=== PATIENT | female | born 1945 | race Hispanic/Latino ===

== ENCOUNTER 2017-09-07 14:06 | Outpatient (CLI) | payer MEDICARE, MEDICAID | END 2017-09-07 14:07 | disposition home or self-care (01) | LOC: BICMAMMO 14:06 | PROVIDERS: ATTEND Nurse Practitioner Family | DX: Z12.31 Encounter for screening mammogram for malignant neoplasm of breast (principal) | CPT/HCPCS: 77063; 77067 ==

== ENCOUNTER 2018-02-10 15:08 | Emergency (ER) | payer MEDICARE, MEDICAID, OTHER ==
[2018-02-10] MEDS ORDERED: Adacel (T-DAP) 0.5 ML VIAL ONE (15:51)
--- NOTE | 2018-02-10 16:08 | RAD ---
CHEST TWO VIEWS: 02/10/18 HISTORY: Chest pain. COMPARISON: 01/02/16. FINDINGS: The cardiac silhouette and pulmonary vasculature are unremarkable. Mediastinum is midline. No conflue nt air space consolidation, pneumothorax, or pleural fluid. Degenerative changes of the thoracic spin e. IMPRESSION: No active cardiopulmonary abnormalities are demonstrated. POS: [facility]
--- NOTE | 2018-02-10 16:15 | RAD ---
RIGHT FOREARM TWO VIEWS: 02/10/18 HISTORY: Forearm pain. There are arthritic changes of the wrist and elbow. The bones are demineralized. Vascular calcificati ons are present. No acute injury. IMPRESSION: No acute findings. POS: [facility]
== END 2018-02-10 17:18 | disposition home or self-care (01) ==
LOC: ERS 15:08
DX: S50.11XA Contusion of right forearm, initial encounter (principal); S20.212A Contusion of left front wall of thorax, initial encounter; E11.9 Type 2 diabetes mellitus without complications; M19.90 Unspecified osteoarthritis, unspecified site; I10 Essential (primary) hypertension; E03.9 Hypothyroidism, unspecified; V49.9XXA Car occupant (driver) (passenger) injured in unspecified traffic accident, initial encounter
CPT/HCPCS: 71046; 90471; 90715

== ENCOUNTER 2018-06-03 23:08 | Emergency (ER) | payer MEDICARE, MEDICAID ==
--- NOTE | 2018-06-04 07:57 | RAD ---
RADIOGRAPH RIGHT KNEE TWO VIEWS: Date: 06-04-18 Time: 1201 a.m. History: 72-year-old female with acute traumatic knee pain due to fall. FINDINGS: This is a 2 view study. In general, at least a 3 view or 4 view radiograph of joints is recommended for better sensitivity for the detection of nondisplaced or mildly displaced fractures. There is a mo derate to large suprapatellar density which could be hemarthrosis or joint effusion. There are large osteophytes, and severe joint space narrowing, involving the patellofemoral, medial, and lateral comp artments. The osteophytes are very large at the superior aspect of the patellofemoral compartment. Th ere is edema in Hoffa's fat pad. There is also soft tissue edema posterior to the knee. No displaced fracture is identified. Chronic mild right lateral subluxation of the tibia relative to the distal fe mur due to the severe DJD. IMPRESSION: 1. Severe tricompartmental osteoarthrosis. 2. Suprapatellar joint effusion versus hemarthrosis. 3. Edema in Hoffa's fat pad. 4. No grossly displaced fracture identified. POS: [facility]
--- NOTE | 2018-06-04 09:04 | RAD ---
RIGHT ELBOW TWO VIEWS: History: Fall. Right elbow pain. FINDINGS/IMPRESSION: Degenerative changes are present. No definite fracture or dislocation is seen. If symptoms do not imp rove, follow up exam should be obtained in 5-7 days. Code T POS: [place]
--- NOTE | 2018-06-04 10:02 | CT ---
PRELIMINARY REPORT/[facility]/EMERGENTY AFTER-HOURS PROCEDURE CT Head Without Intravenous Contrast EXAM DATE/TIME: Exam ordered 06/04/2018 12:10 AM CLINICAL HISTORY: 72 years old, female; Injury or trauma; Fall; Initial encounter; Blunt trauma (contusions or hematoma s); Consciousness not specified TECHNIQUE: Axial computed tomography images of the head/brain without intravenous contrast. COMPARISON: No relevant prior studies available. FINDINGS: Brain: Mild generalized volume loss of the brain. No brain edema. No intracranial hemorrhage. No sign ificant white matter disease. Ventricles: Unremarkable. No ventriculomegaly. Bones/joints: Unremarkable. No acute fracture. Soft tissues: Unremarkable. Sinuses: Unremarkable as visualized. No acute sinusitis. Mastoid air cells: Unremarkable as visualized. No mastoid effusion. IMPRESSION: No acute brain findings. Thank you for allowing us to participate in the care of your patient. Dictated and Authenticated by: Jordan Brantley MD 06/04/2018 12:26 AM Central Time ([place] & [place]) CT BRAIN WITHOUT CONTRAST FINAL REPORT: I agree with the preliminary report given by Dr. Brantley of [facility]. POS: [facility]
== END 2018-06-04 01:16 | disposition home or self-care (01) ==
LOC: SCSER 23:08
DX: S05.11XA Contusion of eyeball and orbital tissues, right eye, initial encounter (principal); S50.01XA Contusion of right elbow, initial encounter; S80.01XA Contusion of right knee, initial encounter; M19.90 Unspecified osteoarthritis, unspecified site; E11.9 Type 2 diabetes mellitus without complications; E78.5 Hyperlipidemia, unspecified; I10 Essential (primary) hypertension; W01.0XXA Fall on same level from slipping, tripping and stumbling without subsequent striking against object, initial encounter
CPT/HCPCS: 70450

== ENCOUNTER 2018-11-08 12:20 | Outpatient (CLI) | payer MEDICARE, MEDICAID ==
--- NOTE | 2018-11-08 14:58 | MMO ---
FILMS COMPARED: The present examination has been compared to prior imaging studies performed at [facility] on 09/07/2017, and at [facility] on 07/03/2013, 07/13/2014, 03/21/2015, 07/23/2015 and 07/28/2016. MAMMOGRAM FINDINGS: There are scattered fibroglandular densities. There are benign appearing calcifications seen in both breasts. There are no suspicious masses, calcifications or areas of architectural distortion. IMPRESSION: CALCIFICATIONS IN BOTH BREASTS ARE BENIGN. A ROUTINE FOLLOW-UP MAMMOGRAM IN 1 YEAR IS RECOMMENDED. ACR BI-RADS Category 2 - Benign finding
== END 2018-11-08 12:21 | disposition home or self-care (01) ==
LOC: BICMAMMO 12:20
PROVIDERS: ATTEND Nurse Practitioner Family
DX: Z12.31 Encounter for screening mammogram for malignant neoplasm of breast (principal); R92.1 Mammographic calcification found on diagnostic imaging of breast
CPT/HCPCS: 77063; 77067

== ENCOUNTER 2019-03-13 22:23 | Emergency (ER) | payer MEDICARE, MEDICAID ==
[2019-03-13] MEDS ORDERED: Ketorolac Tromethamine 30 MG/ML VIAL ONE (23:49)
== END 2019-03-14 00:31 | disposition home or self-care (01) ==
LOC: ERS 22:23
DX: M54.41 Lumbago with sciatica, right side (principal); E11.9 Type 2 diabetes mellitus without complications; E03.9 Hypothyroidism, unspecified; E78.5 Hyperlipidemia, unspecified; I10 Essential (primary) hypertension
CPT/HCPCS: 96372; 99283; J1885

== ENCOUNTER 2019-11-21 09:15 | Outpatient (CLI) | payer MEDICARE, MEDICAID ==
--- NOTE | 2019-11-21 11:15 | MMO ---
Bilateral MAMMO Bilat Screen [facility]. CLINICAL HISTORY: Patient is 74 years old and is seen for screening. The patient has the following family history of breast cancer: niece. The patient has no personal history of cancer. The patient has a history of left Stereotatic Biopsy - benign. VIEWS: The views performed were: bilateral craniocaudal with tomosynthesis and bilateral mediolateral oblique with tomosynthesis. FILMS COMPARED: The present examination has been compared to prior imaging studies performed at [facility] on 09/07/2017 and 11/08/2018, and at [facility] on 07/28/2016. This study has been interpreted with the assistance of computer-aided detection. MAMMOGRAM FINDINGS: There are scattered fibroglandular densities. There are stable benign appearing calcifications seen in both breasts. There are no suspicious masses, suspicious calcifications, or new areas of architectural distortion. IMPRESSION: THERE IS NO MAMMOGRAPHIC EVIDENCE OF MALIGNANCY. A ROUTINE FOLLOW-UP MAMMOGRAM IN 1 YEAR IS RECOMMENDED. THE RESULTS OF THIS EXAM WERE SENT TO THE PATIENT. ACR BI-RADS Category 2 - Benign finding MAMMOGRAPHY NOTE: 1. A negative mammogram report should not delay a biopsy if a dominant of clinically suspicious mass is present. 2. Approximately 10% to 15% of breast cancers are not detected by mammography. 3. Adenosis and dense breasts may obscure an underlying neoplasm. Reported by: BHARATH VAUGHAN MD Electonically Signed: [id number]
== END 2019-11-21 09:16 | disposition home or self-care (01) ==
LOC: BICMAMMO 09:15
PROVIDERS: ATTEND Nurse Practitioner Family
DX: Z12.31 Encounter for screening mammogram for malignant neoplasm of breast (principal); Z91.89 Other specified personal risk factors, not elsewhere classified; Z80.3 Family history of malignant neoplasm of breast
CPT/HCPCS: 77063; 77067

== ENCOUNTER 2020-01-17 12:34 | Outpatient (CLI) | payer MEDICARE, MEDICAID ==
--- NOTE | 2020-01-17 14:56 | ULT ---
RIGHT LOWER EXTREMITY VENOUS ULTRASOUND: 01/17/20 HISTORY: Right lower extremity pain. TECHNIQUE: Multiplanar león scale and color Doppler images were obtained in a right lower extremity venous ultra sound. Spectral analysis of the Doppler waveforms were performed. FINDINGS: The right common femoral vein, profunda femoral vein, superficial femoral vein, and popliteal vein ar e normal in appearance without visible thrombus. These vessels demonstrate normal compression, flow a nd augmentation. The posterior tibial vein and greater saphenous vein are also patent. IMPRESSION: No evidence of DVT. POS: [facility]
== END 2020-01-17 12:35 | disposition home or self-care (01) ==
LOC: BICULT 12:34
PROVIDERS: ATTEND Nurse Practitioner Family
DX: M79.604 Pain in right leg (principal)

== ENCOUNTER 2020-04-10 15:10 | Outpatient (CLI) | payer MEDICARE, MEDICAID ==
--- NOTE | 2020-04-10 15:35 | RAD ---
RIGHT KNEE 4 VIEWS: HISTORY: Knee pain. FINDINGS: Severe degenerative changes noted. Loss of both medial and lateral joint spaces with severe medial j oint space loss. Prominent spurring from all joint compartments. Chondrocalcinosis. Severe hypertr ophic degenerative changes at the patellofemoral joint. Small joint effusion. IMPRESSION: Severe hypertrophic degenerative changes of right knee. POS: [facility]
== END 2020-04-10 15:11 | disposition home or self-care (01) ==
LOC: RAD-FRANK 15:10
PROVIDERS: ATTEND Nurse Practitioner Family
DX: M25.561 Pain in right knee (principal); M17.11 Unilateral primary osteoarthritis, right knee

== ENCOUNTER 2020-06-06 09:41 | Outpatient (CLI) | payer MEDICARE, MEDICAID, OTHER ==
[2020-06-06 14:17] LABS: Anion Gap 13 mmol/L (10-20); BUN (Urea Nitrogen) 14 mg/dL (9.8-20.1); Calc. Creatinine Clearance 0 mL/min (70-130); Calcium 9.4 mg/dL (7.8-10.44); Carbon Dioxide 27 mmol/L (23-31); Chloride 107 mmol/L (98-107); Estimated GFR-MDRD 78; Glucose 79 mg/dL (83-110); Potassium 3.9 mmol/L (3.5-5.1); Sodium 143 mmol/L (136-145)
[2020-06-06 14:29] LABS: #Eosinphils 0.2 thou/uL (0.0-0.7); #Lymphocytes 0.7 thou/uL (1.20-3.40); #Monocytes 0.3 thou/uL (0.11-0.59); #Neutrophils 2.1 thou/uL (1.40-6.50); %Basophils 0.4 % (0.0-1.0); %Eosinophils 4.7 % (0.0-10.0); %Lymphocytes 22.9 % (21.0-51.0); %Monocytes 8.8 % (0.0-10.0); %Neutrophils 63.2 % (42.0-75.0); Hemoglobin 12.3 g/dL (12.0-16.0); Mean Corpuscular HGB CONC 32.7 g/dL (32.0-36.0); Mean Corpuscular Hemoglobin 31.3 pg (27.0-31.0); Mean Corpuscular Volume 95.9 fL (78.0-98.0); Mean Platelet Volume 10.9 fL (7.4-10.4); Platelet Count 146 thou/uL (130-400); RBC Distribution Width 13.4 % (11.5-14.5); Red Blood Cell (RBC) Count 3.93 mill/uL (4.20-5.40); White Blood Cell (WBC) Count 3.3 thou/uL (4.8-10.8)
[2020-06-06 14:35] LABS: INR-International Normal Ratio 0.9; Prothrombin Time 12.5 sec (12.0-14.7)
[2020-06-06 15:08] LABS: Bacteria/HPF None Seen HPF (None Seen); Bilirubin Negative (Negative); Blood, Urine Negative (Negative); Calcium Oxalate Crystals 2+ HPF (None Seen); Clarity Clear (Clear); Glucose, Urine (Dipstick) Normal (Negative); Ketone, Urine Negative (Negative); Leukocyte Negative Leu/uL (Negative); Mucous/LPF Rare LPF (<2+); Nitrite Negative (Negative); Protein, Urine (Dipstick) 70 mg/dL (Neg-Trace); RBC/HPF 0-3 HPF (0-3); Specific Gravity, Urine 1.025 (1.002-1.036); Squamous Epithelial 0-3 HPF (0-3); Urobilinogen Normal mg/dL (Less than 2); WBC/HPF 0-3 HPF (0-3)
[2020-06-07 11:20] LABS: SARS-CoV-2 MS2 Positive; SARS-CoV-2 N Gene Negative; SARS-CoV-2 S Gene Negative; SARS-CoV-2 by NAA Not Detected (NotDetected); SARS-CoV-2 orf1ab Negative
== END 2020-06-06 09:42 | disposition home or self-care (01) ==
LOC: LABBT 09:41
PROVIDERS: ATTEND Orthopaedic Surgery
DX: Z01.818 Encounter for other preprocedural examination (principal); Z20.828 Contact with and (suspected) exposure to other viral communicable diseases; M17.11 Unilateral primary osteoarthritis, right knee
CPT/HCPCS: 80048; 81001; 85025; 85610; 93005; U0003; 87635; 93010

== ENCOUNTER 2020-06-10 05:31 | Inpatient (IN) | payer MEDICARE, MEDICAID, OTHER ==
[2020-06-07 10:21] VITALS: BMI 27.2
[2020-06-10] MEDS ORDERED: Vancomycin 1 GM/200 ML BAG ONE (05:59)
[2020-06-10] MEDS ORDERED: Tranexamic Acid 1,000 MG/10 ML VIAL ONE (05:59)
[2020-06-10] MEDS ORDERED: Sodium Chloride 0.9% 100 ML ONE (05:59)
[2020-06-10] MEDS ORDERED: Midazolam HCl 2 mg/2 ml Vial ONE (06:29)
[2020-06-10] MEDS ORDERED: Fentanyl 100 MCG/2 ML VIAL ONE ×3 (06:30→07:54)
[2020-06-10] MEDS ORDERED: Lidocaine 1% (PF) 30 ML VIAL ONE (06:30)
[2020-06-10] MEDS ORDERED: Ondansetron PF 4 MG/2 ML Vial IVP PRN (07:13)
[2020-06-10] MEDS ORDERED: Fentanyl 100 MCG/2 ML VIAL SLOW IVP PRN (07:13)
[2020-06-10] MEDS ORDERED: Zolpidem Tartrate 5 MG TAB PO PRN ×2 (07:13→07:15)
[2020-06-10] MEDS ORDERED: traMADol HCl 50 MG TAB PO PRN ×2 (07:13→07:15)
[2020-06-10] MEDS ORDERED: diphenhydrAMINE 25 MG CAP PO PRN (07:13)
[2020-06-10] MEDS ORDERED: HYDROcodone/Acetaminophen 10/325 mg Tablet PO PRN ×2 (07:13)
[2020-06-10] MEDS ORDERED: Promethazine HCl 25 MG/ML VIAL IM PRN ×3 (07:13→07:46)
[2020-06-10] MEDS ORDERED: Acetaminophen 325 MG TAB PO PRN ×2 (07:13→07:15)
[2020-06-10] MEDS ORDERED: Tranexamic Acid 1,000 MG in Sodium Chloride 0.9% 100 ML IVPB SCH (07:15)
[2020-06-10] MEDS ORDERED: Bupivacaine PF 0.5% 30 ML VIAL ONE (07:32)
[2020-06-10] MEDS ORDERED: Promethazine HCl 25 MG/ML VIAL SLOW IVP PRN (07:46)
[2020-06-10] MEDS ORDERED: Ondansetron HCl/PF 4 MG/2 ML Vial IVP PRN (07:46)
[2020-06-10] MEDS ORDERED: Phenylephrine 10 MG/ML VIAL ONE (08:39)
[2020-06-10] MEDS ORDERED: PHENYLEPHRINE-NS 100 MCG/ML 10 ML SYRINGE ONE ×2 (08:40→10:35)
[2020-06-10] MEDS ORDERED: CALCIUM CARBONATE PO SCH (09:00)
[2020-06-10] MEDS ORDERED: [UNRECOGNIZED DRUG - OTHER] PO SCH (09:00)
[2020-06-10] MEDS ORDERED: Multivit, Therapeutic 1 TAB PO SCH (09:00)
[2020-06-10] MEDS ORDERED: VITAMIN D3 PO SCH (09:00)
[2020-06-10] MEDS ORDERED: VITAMIN D PO SCH (09:00)
[2020-06-10] MEDS ORDERED: Non-Formulary Item 1 EACH (Cholecalciferol (Vitamin D3) [Vitamin D3] 2,000 UNIT Capsule) PO SCH (09:00)
[2020-06-10] MEDS ORDERED: Non-Formulary Item 1 EACH (Cyanocobalamin (Vitamin B-12) [Vitamin B-12] 1,000 MCG Capsule PO SCH (09:00)
[2020-06-10] MEDS ORDERED: Non-Formulary Item 1 EACH (Multivitamin [Multivitamin] 1 EACH Tablet) PO SCH (09:00)
[2020-06-10] MEDS ORDERED: Non-Formulary Item 1 EACH (Metformin Hcl [Metformin Hcl] 1,000 MG Tablet) PO SCH (09:00)
[2020-06-10] MEDS ORDERED: Aspirin 81 mg Enteric Coated Tablet PO SCH (09:00)
[2020-06-10] MEDS ORDERED: Levothyroxine 175 MCG TAB PO SCH (09:00)
[2020-06-10] MEDS ORDERED: Non-Formulary Item 1 EACH (Leflunomide [Arava] 20 MG Tab) PO SCH (09:00)
[2020-06-10] MEDS: Sodium Chloride 0.9% 1,000 ML IV SCH ×3 (10:15→23:13)
[2020-06-10] MEDS: Calcium Carbonate 600 MG + Vit D TAB PO SCH ×2 (10:16→20:03)
[2020-06-10] MEDS: Glimepiride 2 MG TAB PO SCH (10:16)
[2020-06-10] MEDS: metFORMIN 500 MG TAB PO SCH ×2 (10:16→17:23)
[2020-06-10] MEDS: Amlodipine 5 MG TAB PO SCH (10:16)
[2020-06-10] MEDS: Cholecalciferol 1,000 UNITS (25 MCG) TAB PO SCH (10:16)
[2020-06-10] MEDS: Senokot S 8.6-50 MG TAB PO SCH ×2 (10:17→20:03)
[2020-06-10] MEDS: Multivitamin W/ Minerals 1 TAB PO SCH (10:17)
[2020-06-10] MEDS: Cyanocobalamin (Vitamin B-12) 1,000 MCG TAB PO SCH (10:17)
[2020-06-10] MEDS: Polyethylene Glycol 3350 17 GM Packet PO SCH (10:17)
[2020-06-10] MEDS: Ferrous Gluconate 324 MG TAB PO SCH ×2 (10:17→20:04)
[2020-06-10] MEDS ORDERED: PROPOFOL 200 MG/20 ML VIAL ONE (10:35)
[2020-06-10] MEDS ORDERED: Ondansetron PF 4 MG/2 ML Vial ONE (10:35)
[2020-06-10] MEDS ORDERED: Ropivacaine 0.2% HCl/PF (40 MG/20 ML VIAL) ONE (10:35)
[2020-06-10] MEDS ORDERED: Lidocaine 1% PF 5 ML VIAL ONE (10:35)
[2020-06-10] MEDS ORDERED: Bupivacaine HCl 0.5%/Epinephrine 1:200,000/PF 30 ml Vial ONE (10:35)
[2020-06-10] MEDS ORDERED: Ketorolac Tromethamine 30 MG/ML VIAL ONE (10:35)
[2020-06-10] MEDS ORDERED: EPHEDRINE 25 MG/5 ML SYRINGE ONE (10:35)
[2020-06-10] MEDS ORDERED: Metoclopramide HCl 10 MG/2 ML VIAL ONE (10:35)
[2020-06-10] MEDS: CEFAZOLIN 2 GM in Premix Bag 1 BAG IVPB SCH ×2 (13:32→20:03)
[2020-06-10] MEDS: Ketorolac Tromethamine 30 MG/ML VIAL IVP SCH ×2 (13:33→17:20)
[2020-06-10] MEDS: Leflunomide 10 mg Tablet PO SCH (13:39)
--- NOTE | 2020-06-10 15:26 | OP ---
DATE OF PROCEDURE: 06/10/2020 EDITOR [place]: Gus Newell PA-C PREOPERATIVE DIAGNOSIS: Right knee rheumatoid arthritis. POSTOPERATIVE DIAGNOSIS: Right knee rheumatoid arthritis. PROCEDURE: Right total knee replacement using Stupil pinless navigation system. ANESTHESIA: She had general anesthetic. She had a preoperative block. BLOOD LOSS: Minimal. COMPLICATIONS: None. TOURNIQUET TIME: DISPOSITION: She went to the recovery room in stable condition. IMPLANTS: To the right knee include Triathlon total knee system. The femur was a size 3 right-sided posterior stabilized femoral component. The tibial base plate was a size 3 primary tibial base plate. We used a size 3 x 9 mm posterior stabilized X3 tibial bearing and an asymmetric 29 x 9 X3 patella. INDICATIONS: This is a 74-year-old female, who has rheumatoid arthritis and is currently on biologic for this. Unfortunately, she has failed nonoperative treatment. At this time, she wished to have her knee replaced. PROCEDURE IN DETAIL: After all appropriate consent forms were explained and signed, the patient was taken back to the operating room and at this time was given general anesthetic. Once the level of anesthesia was appropriate, a well-padded tourniquet was placed on the right leg, and the leg was then prepped and draped in standard surgical fashion. The limb was exsanguinated and tourniquet taken up to 300 mmHg. Midline incision was made with a 10 blade down through the skin and subcutaneous tissue. Bovie electrocautery was used to coagulate any brisk venous bleeding. A new blade was used to make a medial parapatellar arthrotomy. Small subperiosteal release was performed medially and excess fat pad was removed. The knee was flexed up to gain access to the femur. The femur was navigated and distal femoral resection was made. Epicondylar access was used to align our sizing jig and this was pinned in place. We sized our femur to be a 3. 4:1 cutting block was applied and pinned. Anterior and posterior chamfer cuts were then made. We navigated out our proximal tibia and made our proximal tibial resection. Spreaders were used to remove any posterior osteophytes off the back of the femur as well as remaining meniscal tissue. A long alignment stefani was then used to achieve correct rotation of our tibial baseplate and a size 3 was chosen. This was pinned in place. We trialed the polyethylene and a 3 x 9 mm posterior stabilized X3 tibial bearing polyethylene gave us full extension and good stability throughout range of motion. Two towel clips and a saw were used to cut our patella. Three lug nuts were drilled and asymmetric 29 x 9 X3 patella was trialed which sat nicely in the trochlear groove. We then drilled our femur and punched our tibia. All components were removed. The knee was thoroughly irrigated and dried. Cement was mixed into the cement gun on the back table. Components were then placed. The knee was held out in full extension until the cement had dried. All excess bone cement was removed. Multiple #2 Vicryl stitches as well as a Quill were used to close our extensor mechanism. 0 Quill followed by a running Monoderm was then used to close the skin. Surgicel glue was then used on the skin. Once this had dried, soft tissue dressing was applied to the limb, tourniquet was let down, and the toes pinked up nicely. The patient was then awakened and taken to the recovery room in stable condition. All counts were correct at the end of the case. The patient did receive preoperative IV antibiotics. The patient was injected with Marcaine for postoperative pain relief. As the patient has rheumatoid arthritis, it was decided to do a posterior stabilized femoral implant. Therefore, the extra step of cutting out the bone in the notch was performed once we had done primary trialing of the femur and tibia. There was no complication in doing this. The executive administrative assistant surgeon was present throughout the procedure, including the approach, placement of implants and closure. Assistance surgeon provided help in all portions of the procedure. Job ID: [id number] [facility] F[facility]ILITY[facility]
[2020-06-10] MEDS ORDERED: Vancomycin 1 GM in Premix Bag 1 BAG IVPB SCH (18:00)
[2020-06-10] MEDS: Aspirin 81 mg Enteric Coated Tablet PO SCH (20:03)
[2020-06-10] MEDS: Lisinopril 20 MG TAB PO SCH (20:03)
[2020-06-10] MEDS: HYDROcodone/Acetaminophen 10/325 mg Tablet PO PRN (20:04)
[2020-06-10] MEDS: Atorvastatin Calcium 20 MG TAB PO SCH (20:04)
[2020-06-10] MEDS ORDERED: Simvastatin 40 MG TAB PO SCH (21:00)
[2020-06-11] MEDS: Ketorolac Tromethamine 30 MG/ML VIAL IVP SCH ×5 (00:42→23:06)
[2020-06-11] MEDS: HYDROcodone/Acetaminophen 10/325 mg Tablet PO PRN ×3 (02:31→10:37)
--- NOTE | 2020-06-11 05:11 | CON ---
DATE OF CONSULTATION: Consultation to Dr. David Nichols. PRIMARY CARE PROVIDER: Dr. Girard in [place]. REASON FOR CONSULTATION: Consultation for medical management. HISTORY OF PRESENT ILLNESS: The patient is status post right total knee replacement this morning. She is awake, oriented, no nausea, no vomiting, no fever or chills. No chest pain or shortness of breath. PAST MEDICAL HISTORY: Pertinent for diabetes mellitus type 2, rheumatoid arthritis, hypertension, dyslipidemia. MEDICATIONS: 1. Amlodipine 2.5 mg a day. 2. Aspirin 81 mg a day. 3. Biotin 5 mg a day. 4. Vitamin D3. 5. Vitamin B12. 6. Voltaren 4 g topical q.i.d. p.r.n. 7. Amaryl 2 mg p.o. q.a.m. 8. Plaquenil 300 mg a day. 9. Arava 20 mg a day. 10. Levothyroxine one half of 175 mcg tablet a day. 11. Lisinopril 20 mg a day. 12. Magnesium 200 twice a day. 13. Protonix 40 mg a day. 14. Zocor 40 mg a day. 15. Metformin 500 mg p.o. b.i.d. 16. Tramadol 50 mg p.o. t.i.d. p.r.n. ALLERGIES: TO SULFA, CAUSES HIVES. PAST SURGICAL HISTORY: Thyroidectomy, cholecystectomy, hysterectomy, bilateral arthroscopic knee surgery. FAMILY HISTORY: Sister, mother, granddaughter with diabetes. Mother had congestive heart failure. Has a daughter with rheumatoid arthritis. SOCIAL HISTORY: . Next of kin is Marta Lowe. No tobacco. No alcohol or illicit drugs. Code status is full. REVIEW OF SYSTEMS: GENERAL: No headaches, dizziness, or fainting. EYES: No double vision, blurred vision, or flashing lights. EARS, NOSE, AND THROAT: No ear pain or drainage. No nose bleeding. No trouble swallowing. CARDIAC: No chest pain, shortness of breath, or paroxysmal nocturnal dyspnea. RESPIRATION: No cough, wheezing, or asthma. GASTROINTESTINAL: No nausea, vomiting, diarrhea, constipation, or melena. GENITOURINARY: No hematuria or dysuria. MUSCULOSKELETAL: She had some swelling in her right leg prior to surgery. No swelling on the left. No pain in her muscles. She did have a painful right knee that made walking difficult. NEUROLOGIC: No strokes, seizures, or focal weakness. PSYCHIATRIC: No anxiety or depression. SKIN: No bruising, bleeding, or rash. HEME/LYMPH: No tender or swollen lymph nodes in axilla, inguinal, or cervical area. PHYSICAL EXAMINATION: GENERAL: The patient is alert and cooperative, pleasant lady. VITAL SIGNS: Blood pressure 96/47, respirations 18, pulse 75, temperature 98.4. HEAD, EYES, EARS, NOSE, AND THROAT: Revealed pupils equal, round, and reactive. Extraocular movements are intact. Sclerae are white. Tympanic membranes are clear. Nose clear. Oral mucous membranes are wet. Dental hygiene is good. NECK: Supple without jugular venous distention, adenopathy, or thyromegaly. CHEST: Clear to auscultation and percussion. HEART: Had a regular rate and rhythm. First and second heart sounds are clear. There are no appreciated murmurs or gallops. ABDOMEN: Soft. Bowel sounds are normal. There is no hepatosplenomegaly. No mass. No rebound. No bruits. Bowel sounds are present. EXTREMITIES: 1+ edema in the right leg, none in the left. Right knee bandaged. NEUROLOGIC: Moves all extremities. Cranial nerves 2 through 12 are intact. SKIN: Warm and dry without bruises or rash. HEME/LYMPH: No tender or swollen lymph nodes in axilla, inguinal, or cervical area. PSYCHIATRIC: Alert, oriented, cooperative, pleasant lady. STUDIES: X-ray of right knee, severe degenerative changes with joint space narrowing, erosion, etc, reviewed by me. EKG, regular sinus rhythm with complete right bundle branch block, reviewed by me. LABORATORY DATA: COVID negative. White count 3.3, hemoglobin 12.3, platelet count 146,000. INR 0.9. Basic metabolic profile normal. Blood sugar 79, followup blood sugar 68, followup 110. Urine is clear. ADMITTING DIAGNOSES: 1. Postop right total knee replacement, doing well. 2. Rheumatoid arthritis, on Plaquenil. 3. Diabetes mellitus, type 2. 4. Hypertension. 5. Elevated cholesterol. PLAN: The patient is stable postop. Continue selected home medicines. Thank you for the consult. We will follow with you. Job ID: [id number]
[2020-06-11 05:49] LABS: Hemoglobin 8.6 g/dL (12.0-16.0); Mean Corpuscular HGB CONC 34.1 g/dL (32.0-36.0); Mean Corpuscular Hemoglobin 32.6 pg (27.0-31.0); Mean Corpuscular Volume 95.5 fL (78.0-98.0); Mean Platelet Volume 9.6 fL (7.4-10.4); Platelet Count 113 thou/uL (130-400); RBC Distribution Width 13.7 % (11.5-14.5); Red Blood Cell (RBC) Count 2.64 mill/uL (4.20-5.40); White Blood Cell (WBC) Count 5.1 thou/uL (4.8-10.8)
[2020-06-11] MEDS: Levothyroxine 175 MCG TAB PO SCH (06:12)
[2020-06-11] MEDS: Fentanyl 100 MCG/2 ML VIAL SLOW IVP PRN ×2 (09:13→10:38)
[2020-06-11] MEDS: Multivitamin W/ Minerals 1 TAB PO SCH (09:18)
[2020-06-11] MEDS: Cyanocobalamin (Vitamin B-12) 1,000 MCG TAB PO SCH (09:18)
[2020-06-11] MEDS: Polyethylene Glycol 3350 17 GM Packet PO SCH (09:18)
[2020-06-11] MEDS: Senokot S 8.6-50 MG TAB PO SCH ×2 (09:18→20:08)
[2020-06-11] MEDS: Ferrous Gluconate 324 MG TAB PO SCH ×2 (09:20→20:08)
[2020-06-11] MEDS: metFORMIN 500 MG TAB PO SCH ×2 (09:20→19:10)
[2020-06-11] MEDS: Calcium Carbonate 600 MG + Vit D TAB PO SCH ×2 (09:20→20:08)
[2020-06-11] MEDS: Cholecalciferol 1,000 UNITS (25 MCG) TAB PO SCH (09:21)
[2020-06-11] MEDS: Amlodipine 5 MG TAB PO SCH (09:22)
[2020-06-11] MEDS: Glimepiride 2 MG TAB PO SCH (10:41)
[2020-06-11] MEDS: Leflunomide 10 mg Tablet PO SCH (10:42)
--- NOTE | 2020-06-11 15:18 | PDOC.HOSPP ---
- Subjective Encounter Date: 06/11/20 Encounter Time: 15:16 Subjective: some pain in kneee post rehab - Objective Vital Signs & Weight: Vital Signs (12 hours) Temp Pulse Resp BP BP Pulse Ox 06/11/20 10:45 97.6 F 88 18 119/63 99 06/11/20 09:22 95 06/11/20 08:02 98.5 F 95 16 146/71 H 96 06/11/20 03:43 92 L Weight Admit Weight 149 lb Weight 149 lb I&O: 06/10/20 06/11/20 06/12/20 06:59 06:59 06:59 Intake Total 1550 Output Total 3350 Balance -1800 Result Diagrams: 06/11/20 05:17 Hospitalist ROS - Medication Medications: Active Medications Generic Name Dose Route Start Last Admin Trade Name Freq PRN Reason Stop Dose Admin Hydrocodone Bitart/Acetaminophen 1 tab 06/10/20 07:15 06/11/20 06:13 Hydrocodone/Acetaminophen 10/325 Mg Tablet PO 1 tab Q4H PRN Administration Pain (1-3) Hydrocodone Bitart/Acetaminophen 2 tab 06/10/20 07:15 06/11/20 10:37 Hydrocodone/Acetaminophen 10/325 Mg Tablet PO 2 tab Q4H PRN Administration PAIN (4-6) Amlodipine Besylate 2.5 mg 06/10/20 09:00 06/11/20 09:22 Amlodipine 5 Mg Tab PO 2.5 mg DAILY CORINNE Administration Aspirin 81 mg 06/10/20 21:00 06/10/20 20:03 Aspirin 81 Mg Enteric Coated Tablet PO 81 mg QPM CORINNE Administration Atorvastatin Calcium 20 mg 06/10/20 21:00 06/10/20 20:04 Atorvastatin Calcium 20 Mg Tab PO 20 mg HS CORINNE Administration Calcium/Vitamin D 1 tab 06/10/20 09:00 06/11/20 09:20 Calcium Carbonate 600 Mg + Vit D Tab PO 1 tab BID CORINNE Administration Cholecalciferol 2,000 units 06/10/20 09:00 06/11/20 09:21 Cholecalciferol 1,000 Units (25 Mcg) Tab PO 2,000 units DAILY CORINNE Administration Cyanocobalamin 1,000 mcg 06/10/20 09:00 06/11/20 09:18 Cyanocobalamin (Vitamin B-12) 1,000 Mcg Tab PO 1,000 mcg DAILY CORINNE Administration Fentanyl 50 mcg 06/10/20 07:13 06/11/20 10:38 Fentanyl 100 Mcg/2 Ml Vial SLOW IVP 50 mcg Q1H PRN Administration breakthrough pain Ferrous Gluconate 324 mg 06/10/20 09:00 06/11/20 09:20 Ferrous Gluconate 324 Mg Tab PO 324 mg BID CORINNE Administration Glimepiride 2 mg 06/10/20 08:00 06/11/20 10:41 Glimepiride 2 Mg Tab PO 2 mg QAM-WM CORINNE Administration Sodium Chloride 1,000 mls @ 100 mls/hr 06/10/20 07:15 06/10/20 23:13 Normal Saline 0.9% IV Not Given .Q10H CORINNE Iron/Minerals/Multivitamins 1 tab 06/10/20 09:00 06/11/20 09:18 Multivitamin W/ Minerals 1 Tab PO 1 tab DAILY CORINNE Administration Ketorolac Tromethamine 15 mg 06/10/20 12:00 06/11/20 12:10 Ketorolac Tromethamine 30 Mg/Ml Vial IVP 06/12/20 06:01 15 mg Q6HR CORINNE Administration Leflunomide 20 mg 06/10/20 09:00 06/11/20 10:42 Leflunomide 10 Mg Tablet PO 20 mg DAILY CORINNE Administration Levothyroxine Sodium 87.5 mcg 06/11/20 06:00 06/11/20 06:12 Levothyroxine 175 Mcg Tab PO 87.5 mcg 0600 CORINNE Administration Lisinopril 20 mg 06/10/20 21:00 06/10/20 20:03 Lisinopril 20 Mg Tab PO 20 mg QPM CORINNE Administration Metformin HCl 500 mg 06/11/20 08:00 06/11/20 09:20 Metformin 500 Mg Tab PO 500 mg BID-WM CORINNE Administration Pantoprazole Sodium 40 mg 06/10/20 09:00 06/11/20 09:20 Pantoprazole 40 Mg Tab PO 40 mg QAM CORINNE Administration Polyethylene Glycol 17 gm 06/10/20 09:00 06/11/20 09:18 Polyethylene Glycol 3350 17 Gm Packet PO 17 gm DAILY CORINNE Administration Senna/Docusate Sodium 2 tab 06/10/20 09:00 06/11/20 09:18 Senokot S 8.6-50 Mg Tab PO 2 tab BID CORINNE Administration - Exam General Appearance: awake alert Neck: no JVD Heart: RRR, no murmur Respiratory: CTAB Gastrointestinal: soft, non-tender, normal bowel sounds Extremities: no edema Hosp A/P (1) DM type 2 (diabetes mellitus, type 2) Status: Acute Qualifiers: Diabetes mellitus dedicated intermodal truck driver insulin use: without dedicated intermodal truck driver use Diabetes mellitus complication status: without complication Qualified Code(s): E11.9 - Type 2 diabetes mellitus without complications (2) Rheumatoid arthritis Code(s): M06.9 - RHEUMATOID ARTHRITIS, UNSPECIFIED Status: Chronic Qualifiers: Rheumatoid factor presence: with rheumatoid factor Laterality: unspecified laterality (3) HTN (hypertension) Code(s): I10 - ESSENTIAL (PRIMARY) HYPERTENSION Status: Chronic Qualifiers: Hypertension type: essential hypertension Qualified Code(s): I10 - Essential (primary) hypertension (4) Dyslipidemia Code(s): E78.5 - HYPERLIPIDEMIA, UNSPECIFIED Status: Chronic - Plan doing well post-op cont current meds for HTN, DM2 will cont to follow
[2020-06-11] MEDS: Sodium Chloride 0.9% 1,000 ML IV SCH (16:01)
[2020-06-11] MEDS: Ondansetron PF 4 MG/2 ML Vial IVP PRN (17:20)
[2020-06-11] MEDS: Ropivacaine HCl/PF 250 ML in Premix Bag 1 BAG NERVE BLCK SCH (19:09)
[2020-06-11] MEDS: Lisinopril 20 MG TAB PO SCH (20:08)
[2020-06-11] MEDS: Atorvastatin Calcium 20 MG TAB PO SCH (20:08)
[2020-06-11] MEDS: Aspirin 81 mg Enteric Coated Tablet PO SCH (20:08)
[2020-06-12] MEDS: Sodium Chloride 0.9% 1,000 ML IV SCH ×3 (00:27→20:47)
[2020-06-12] MEDS: HYDROcodone/Acetaminophen 10/325 mg Tablet PO PRN ×3 (02:33→18:05)
[2020-06-12 05:18] LABS: Mean Corpuscular HGB CONC 35.8 g/dL (32.0-36.0); Mean Corpuscular Hemoglobin 34.1 pg (27.0-31.0); Mean Corpuscular Volume 95.4 fL (78.0-98.0); Platelet Count 110 thou/uL (130-400); RBC Distribution Width 14.1 % (11.5-14.5); Red Blood Cell (RBC) Count 2.35 mill/uL (4.20-5.40); White Blood Cell (WBC) Count 4.8 thou/uL (4.8-10.8)
[2020-06-12] MEDS: Levothyroxine 175 MCG TAB PO SCH (05:51)
[2020-06-12] MEDS: Ketorolac Tromethamine 30 MG/ML VIAL IVP SCH (05:51)
[2020-06-12] MEDS: Leflunomide 10 mg Tablet PO SCH (08:31)
[2020-06-12] MEDS: Calcium Carbonate 600 MG + Vit D TAB PO SCH ×2 (08:31→20:48)
[2020-06-12] MEDS: metFORMIN 500 MG TAB PO SCH ×2 (08:31→16:08)
[2020-06-12] MEDS: Cholecalciferol 1,000 UNITS (25 MCG) TAB PO SCH (08:31)
[2020-06-12] MEDS: Polyethylene Glycol 3350 17 GM Packet PO SCH (08:31)
[2020-06-12] MEDS: Senokot S 8.6-50 MG TAB PO SCH ×2 (08:31→20:48)
[2020-06-12] MEDS: Glimepiride 2 MG TAB PO SCH (08:31)
[2020-06-12] MEDS: Multivitamin W/ Minerals 1 TAB PO SCH (08:31)
[2020-06-12] MEDS: Cyanocobalamin (Vitamin B-12) 1,000 MCG TAB PO SCH (08:32)
[2020-06-12] MEDS: Ferrous Gluconate 324 MG TAB PO SCH ×2 (08:32→20:48)
[2020-06-12] MEDS: Amlodipine 5 MG TAB PO SCH (08:34)
--- NOTE | 2020-06-12 13:48 | PDOC.HOSPP ---
- Subjective Encounter Date: 06/12/20 Encounter Time: 13:48 Subjective: doing better, pain with PT decreasing. no fever , chills - Objective Vital Signs & Weight: Vital Signs (12 hours) Temp Pulse Resp BP BP BP Pulse Ox 06/12/20 11:53 98.2 F 96 14 160/76 H 98 06/12/20 08:34 98 107/68 06/12/20 07:55 98.6 F 80 14 103/62 94 L 06/12/20 04:38 81 95/58 L 06/12/20 03:25 98.6 F 89 16 96 Weight Admit Weight 149 lb Weight 149 lb I&O: 06/11/20 06/12/20 06/13/20 06:59 06:59 06:59 Intake Total 1550 1250 Output Total 3350 Balance -1800 1250 Result Diagrams: 06/12/20 04:49 Hospitalist ROS - Medication Medications: Active Medications Generic Name Dose Route Start Last Admin Trade Name Freq PRN Reason Stop Dose Admin Hydrocodone Bitart/Acetaminophen 1 tab 06/10/20 07:15 06/12/20 13:22 Hydrocodone/Acetaminophen 10/325 Mg Tablet PO 1 tab Q4H PRN Administration Pain (1-3) Hydrocodone Bitart/Acetaminophen 2 tab 06/10/20 07:15 06/12/20 02:33 Hydrocodone/Acetaminophen 10/325 Mg Tablet PO 2 tab Q4H PRN Administration PAIN (4-6) Amlodipine Besylate 2.5 mg 06/10/20 09:00 06/12/20 08:34 Amlodipine 5 Mg Tab PO Not Given DAILY [facility] Aspirin 81 mg 06/10/20 21:00 06/11/20 20:08 Aspirin 81 Mg Enteric Coated Tablet PO 81 mg QPM [facility] Administration Atorvastatin Calcium 20 mg 06/10/20 21:00 06/11/20 20:08 Atorvastatin Calcium 20 Mg Tab PO 20 mg HS [facility] Administration Calcium/Vitamin D 1 tab 06/10/20 09:00 06/12/20 08:31 Calcium Carbonate 600 Mg + Vit D Tab PO 1 tab BID [facility] Administration Cholecalciferol 2,000 units 06/10/20 09:00 06/12/20 08:31 Cholecalciferol 1,000 Units (25 Mcg) Tab PO 2,000 units DAILY [facility] Administration Cyanocobalamin 1,000 mcg 06/10/20 09:00 06/12/20 08:32 Cyanocobalamin (Vitamin B-12) 1,000 Mcg Tab PO 1,000 mcg DAILY [facility] Administration Fentanyl 50 mcg 06/10/20 07:13 06/11/20 10:38 Fentanyl 100 Mcg/2 Ml Vial SLOW IVP 50 mcg Q1H PRN Administration breakthrough pain Ferrous Gluconate 324 mg 06/10/20 09:00 06/12/20 08:32 Ferrous Gluconate 324 Mg Tab PO 324 mg BID [facility] Administration Glimepiride 2 mg 06/10/20 08:00 06/12/20 08:31 Glimepiride 2 Mg Tab PO 2 mg QAM-WM [facility] Administration Ropivacaine 250 ml/ Device 250 mls @ 10 mls/hr 06/10/20 07:15 06/11/20 19:09 NERVE BLCK 06/13/20 07:14 250 mls INF [facility] Administration Sodium Chloride 1,000 mls @ 100 mls/hr 06/10/20 07:15 06/12/20 08:38 Normal Saline 0.9% IV Not Given .Q10H [facility] Iron/Minerals/Multivitamins 1 tab 06/10/20 09:00 06/12/20 08:31 Multivitamin W/ Minerals 1 Tab PO 1 tab DAILY [facility] Administration Leflunomide 20 mg 06/10/20 09:00 06/12/20 08:31 Leflunomide 10 Mg Tablet PO 20 mg DAILY [facility] Administration Levothyroxine Sodium 87.5 mcg 06/11/20 06:00 06/12/20 05:51 Levothyroxine 175 Mcg Tab PO 87.5 mcg 0600 [facility] Administration Lisinopril 20 mg 06/10/20 21:00 06/11/20 20:08 Lisinopril 20 Mg Tab PO 20 mg QPM [facility] Administration Metformin HCl 500 mg 06/11/20 08:00 06/12/20 08:31 Metformin 500 Mg Tab PO 500 mg BID-WM [facility] Administration Ondansetron HCl 4 mg 06/10/20 07:15 06/11/20 17:20 Ondansetron Pf 4 Mg/2 Ml Vial IVP 4 mg Q6H PRN Administration Nausea/Vomiting Pantoprazole Sodium 40 mg 06/10/20 09:00 06/12/20 08:31 Pantoprazole 40 Mg Tab PO 40 mg QAM [facility] Administration Polyethylene Glycol 17 gm 06/10/20 09:00 06/12/20 08:31 Polyethylene Glycol 3350 17 Gm Packet PO 17 gm DAILY [facility] Administration Senna/Docusate Sodium 2 tab 06/10/20 09:00 06/12/20 08:31 Senokot S 8.6-50 Mg Tab PO 2 tab BID [facility] Administration Sodium Chloride 10 ml 06/10/20 07:13 06/11/20 17:33 Flush - Normal Saline 10 Ml Syringe IVF 10 ml PRN PRN Administration Saline Flush - Exam General Appearance: awake alert Neck: no JVD Heart: RRR Respiratory: CTAB Gastrointestinal: soft, normal bowel sounds Extremities: 1+ LE edema Hosp A/P (1) DM type 2 (diabetes mellitus, type 2) Status: Acute Qualifiers: Diabetes mellitus detention insulin use: without exterminator use Diabetes mellitus complication status: without complication Qualified Code(s): E11.9 - Type 2 diabetes mellitus without complications (2) Rheumatoid arthritis Code(s): M06.9 - RHEUMATOID ARTHRITIS, UNSPECIFIED Status: Chronic Qualifiers: Rheumatoid factor presence: with rheumatoid factor Laterality: unspecified laterality (3) HTN (hypertension) Code(s): I10 - ESSENTIAL (PRIMARY) HYPERTENSION Status: Chronic Qualifiers: Hypertension type: essential hypertension Qualified Code(s): I10 - Essential (primary) hypertension (4) Dyslipidemia Code(s): E78.5 - HYPERLIPIDEMIA, UNSPECIFIED Status: Chronic - Plan doing well post-op cont current meds for HTN, DM2 will cont to follow
[2020-06-12] MEDS: traMADol HCl 50 MG TAB PO PRN (16:08)
[2020-06-12] MEDS: Ropivacaine HCl/PF 250 ML in Premix Bag 1 BAG NERVE BLCK SCH (16:11)
--- NOTE | 2020-06-12 17:05 | PRG ---
DATE OF SERVICE: 06/12/2020 SUBJECTIVE: Hoda is a 74-year-old female, postop day #2 from a right total knee arthroplasty. Pain is relatively well controlled, but she has a little bit of nausea and abdominal discomfort. She is able to ambulate 300 to 400 feet without any problem, but her nausea has been slowing her down in terms of going home. OBJECTIVE: VITAL SIGNS: Temperature 98.6, pulse 80, respiratory rate 14 and nonlabored, O2 saturation is 94% on room air, blood pressure is 103/62. GENERAL: She is alert and oriented to person, place, time, and situation. Responsive and appropriate with examiner and conversive. EXTREMITIES: Incision clean. No erythema. No strike through. She is neurovascularly intact in the right lower extremity. LABORATORY DATA: Hemoglobin and hematocrit are 8.0 and 22.4. IMPRESSION: 1. This is a 74-year-old female, postop day #2, right total knee arthroplasty, pain is well controlled. 2. Nausea, I suspect medication. 3. Asymptomatic anemia. PLAN: We will hold discharge for another day and plan for home discharge tomorrow. Continue to follow hemoglobin and hematocrit and observe abdomen. Job ID: [id number]
[2020-06-12] MEDS: Atorvastatin Calcium 20 MG TAB PO SCH (20:48)
[2020-06-12] MEDS: Aspirin 81 mg Enteric Coated Tablet PO SCH (20:48)
[2020-06-12] MEDS: Lisinopril 20 MG TAB PO SCH (20:48)
[2020-06-13] MEDS: Sodium Chloride 0.9% 1,000 ML IV SCH ×2 (06:11→15:14)
[2020-06-13] MEDS: Levothyroxine 175 MCG TAB PO SCH (06:12)
[2020-06-13 06:39] LABS: Hemoglobin 7.4 g/dL (12.0-16.0); Mean Corpuscular HGB CONC 34.7 g/dL (32.0-36.0); Mean Corpuscular Hemoglobin 33.8 pg (27.0-31.0); Mean Corpuscular Volume 97.7 fL (78.0-98.0); Mean Platelet Volume 9.7 fL (7.4-10.4); RBC Distribution Width 13.7 % (11.5-14.5); Red Blood Cell (RBC) Count 2.18 mill/uL (4.20-5.40); White Blood Cell (WBC) Count 4.7 thou/uL (4.8-10.8)
[2020-06-13 08:02] LABS: Platelet Count 119 thou/uL (130-400)
[2020-06-13] MEDS: HYDROcodone/Acetaminophen 10/325 mg Tablet PO PRN ×4 (09:24→22:30)
[2020-06-13] MEDS: Calcium Carbonate 600 MG + Vit D TAB PO SCH ×2 (09:27→20:20)
[2020-06-13] MEDS: Cyanocobalamin (Vitamin B-12) 1,000 MCG TAB PO SCH (09:27)
[2020-06-13] MEDS: Ferrous Gluconate 324 MG TAB PO SCH ×2 (09:27→20:20)
[2020-06-13] MEDS: Amlodipine 5 MG TAB PO SCH (09:29)
[2020-06-13] MEDS: Multivitamin W/ Minerals 1 TAB PO SCH (09:29)
[2020-06-13] MEDS: Glimepiride 2 MG TAB PO SCH (09:30)
[2020-06-13] MEDS: Cholecalciferol 1,000 UNITS (25 MCG) TAB PO SCH (09:30)
[2020-06-13] MEDS: Leflunomide 10 mg Tablet PO SCH (09:30)
[2020-06-13] MEDS: metFORMIN 500 MG TAB PO SCH ×2 (09:30→17:59)
[2020-06-13] MEDS: Senokot S 8.6-50 MG TAB PO SCH ×2 (09:31→20:21)
[2020-06-13] MEDS: Polyethylene Glycol 3350 17 GM Packet PO SCH (09:31)
--- NOTE | 2020-06-13 13:40 | PRG ---
DATE OF SERVICE: 06/13/2020 SUBJECTIVE: Hoda is a 74-year-old female, postop day 3 from a right total knee arthroplasty. She has been doing relatively well. From an ambulatory stand point, she has been able to ambulate 300 to 400 feet, but tires quickly and her anemia is probably having an effect on that. Pain control is an issue. She has been taking [place], but still has breakthrough pain and this is also slowing her down. She is uncertain about her disposition at home and her ability to take care of herself. Therefore, I have discussed with her options to include a skilled placement. OBJECTIVE: VITAL SIGNS: Temperature 98.6, pulse 78, respiratory rate 14, blood pressure is 119/74. GENERAL: She is alert and oriented to person, place, time, and situation. Responsive and appropriate with examiner. Incision is clean. She is neurovascularly intact. No strikethrough. LABORATORY DATA: Hemoglobin and hematocrit are 7.4 and 21.3. IMPRESSION: 1. Diabetes, type 2. 2. Rheumatoid arthritis. 3. Hypertension. 4. Hyperlipidemia. 5. Postoperative day 3, right total knee arthroplasty with a mildly symptomatic anemia in a very frail female. PLAN: We will go ahead and place a post-acute order for skilled placement screening and consider a transfer to facility tomorrow. Job ID: [id number]
--- NOTE | 2020-06-13 16:33 | PDOC.HOSPP ---
- Subjective Encounter Date: 06/13/20 Encounter Time: 16:31 Subjective: still has some discomfort - Objective Vital Signs & Weight: Vital Signs (12 hours) Temp Pulse Resp BP BP Pulse Ox 06/13/20 15:25 98.3 F 91 14 115/70 97 06/13/20 11:33 98.6 F 78 14 119/74 95 06/13/20 09:29 90 06/13/20 07:54 97 06/13/20 07:37 98.5 F 90 16 131/75 97 06/13/20 06:26 145/74 H 06/13/20 06:25 98.2 F 64 18 148/83 H 96 Weight Admit Weight 149 lb Weight 149 lb I&O: 06/12/20 06/13/20 06/14/20 06:59 06:59 06:59 Intake Total 1250 1200 Balance 1250 1200 Result Diagrams: 06/13/20 04:36 Hospitalist ROS - Medication Medications: Active Medications Generic Name Dose Route Start Last Admin Trade Name Freq PRN Reason Stop Dose Admin Hydrocodone Bitart/Acetaminophen 1 tab 06/10/20 07:15 06/12/20 13:22 Hydrocodone/Acetaminophen 10/325 Mg Tablet PO 1 tab Q4H PRN Administration Pain (1-3) Hydrocodone Bitart/Acetaminophen 2 tab 06/10/20 07:15 06/13/20 13:53 Hydrocodone/Acetaminophen 10/325 Mg Tablet PO 2 tab Q4H PRN Administration PAIN (4-6) Amlodipine Besylate 2.5 mg 06/10/20 09:00 06/13/20 09:29 Amlodipine 5 Mg Tab PO 2.5 mg DAILY [facility] Administration Aspirin 81 mg 06/10/20 21:00 06/12/20 20:48 Aspirin 81 Mg Enteric Coated Tablet PO 81 mg QPM [facility] Administration Atorvastatin Calcium 20 mg 06/10/20 21:00 06/12/20 20:48 Atorvastatin Calcium 20 Mg Tab PO 20 mg HS [facility] Administration Calcium/Vitamin D 1 tab 06/10/20 09:00 06/13/20 09:27 Calcium Carbonate 600 Mg + Vit D Tab PO 1 tab BID [facility] Administration Cholecalciferol 2,000 units 06/10/20 09:00 06/13/20 09:30 Cholecalciferol 1,000 Units (25 Mcg) Tab PO 2,000 units DAILY [facility] Administration Cyanocobalamin 1,000 mcg 06/10/20 09:00 06/13/20 09:27 Cyanocobalamin (Vitamin B-12) 1,000 Mcg Tab PO 1,000 mcg DAILY [facility] Administration Fentanyl 50 mcg 06/10/20 07:13 06/11/20 10:38 Fentanyl 100 Mcg/2 Ml Vial SLOW IVP 50 mcg Q1H PRN Administration breakthrough pain Ferrous Gluconate 324 mg 06/10/20 09:00 06/13/20 09:27 Ferrous Gluconate 324 Mg Tab PO 324 mg BID [facility] Administration Glimepiride 2 mg 06/10/20 08:00 06/13/20 09:30 Glimepiride 2 Mg Tab PO 2 mg QAM-WM [facility] Administration Sodium Chloride 1,000 mls @ 100 mls/hr 06/10/20 07:15 06/13/20 15:14 Normal Saline 0.9% IV Not Given .Q10H [facility] Iron/Minerals/Multivitamins 1 tab 06/10/20 09:00 06/13/20 09:29 Multivitamin W/ Minerals 1 Tab PO 1 tab DAILY [facility] Administration Leflunomide 20 mg 06/10/20 09:00 06/13/20 09:30 Leflunomide 10 Mg Tablet PO 20 mg DAILY [facility] Administration Levothyroxine Sodium 87.5 mcg 06/11/20 06:00 06/13/20 06:12 Levothyroxine 175 Mcg Tab PO Not Given 0600 [facility] Lisinopril 20 mg 06/10/20 21:00 06/12/20 20:48 Lisinopril 20 Mg Tab PO 20 mg QPM [facility] Administration Metformin HCl 500 mg 06/11/20 08:00 06/13/20 09:30 Metformin 500 Mg Tab PO 500 mg BID-WM [facility] Administration Ondansetron HCl 4 mg 06/10/20 07:15 06/11/20 17:20 Ondansetron Pf 4 Mg/2 Ml Vial IVP 4 mg Q6H PRN Administration Nausea/Vomiting Pantoprazole Sodium 40 mg 06/10/20 09:00 06/13/20 09:30 Pantoprazole 40 Mg Tab PO 40 mg QAM [facility] Administration Polyethylene Glycol 17 gm 06/10/20 09:00 06/13/20 09:31 Polyethylene Glycol 3350 17 Gm Packet PO Not Given DAILY [facility] Senna/Docusate Sodium 2 tab 06/10/20 09:00 06/13/20 09:31 Senokot S 8.6-50 Mg Tab PO Not Given BID [facility] Sodium Chloride 10 ml 06/10/20 07:13 06/11/20 17:33 Flush - Normal Saline 10 Ml Syringe IVF 10 ml PRN PRN Administration Saline Flush Tramadol HCl 100 mg 06/10/20 07:15 06/12/20 16:08 Tramadol Hcl 50 Mg Tab PO 100 mg Q6H PRN Administration Moderate Pain 4-6 - Exam General Appearance: awake alert Neck: no JVD Heart: RRR, no murmur Respiratory: CTAB Gastrointestinal: soft, normal bowel sounds Extremities: no edema Hosp A/P (1) DM type 2 (diabetes mellitus, type 2) Status: Acute Qualifiers: Diabetes mellitus intermediate manager insulin use: without intermediate manager use Diabetes mellitus complication status: without complication Qualified Code(s): E11.9 - Type 2 diabetes mellitus without complications (2) Rheumatoid arthritis Code(s): M06.9 - RHEUMATOID ARTHRITIS, UNSPECIFIED Status: Chronic Qualifiers: Rheumatoid factor presence: with rheumatoid factor Laterality: unspecified laterality (3) HTN (hypertension) Code(s): I10 - ESSENTIAL (PRIMARY) HYPERTENSION Status: Chronic Qualifiers: Hypertension type: essential hypertension Qualified Code(s): I10 - Essential (primary) hypertension (4) Dyslipidemia Code(s): E78.5 - HYPERLIPIDEMIA, UNSPECIFIED Status: Chronic (5) Anemia due to blood loss, acute Code(s): D62 - ACUTE POSTHEMORRHAGIC ANEMIA Status: Acute - Plan Hg down to 7.4 cont current meds for HTN, DM2 decision to move to SNF instead of home has been made patient put on Fe replacement will cont to follow
[2020-06-13] MEDS: Aspirin 81 mg Enteric Coated Tablet PO SCH (20:20)
[2020-06-13] MEDS: Atorvastatin Calcium 20 MG TAB PO SCH (20:21)
[2020-06-13] MEDS: Lisinopril 20 MG TAB PO SCH (20:22)
[2020-06-13] MEDS: traMADol HCl 50 MG TAB PO PRN (20:25)
[2020-06-13] MEDS: Fentanyl 100 MCG/2 ML VIAL SLOW IVP PRN (22:05)
[2020-06-14] MEDS: Sodium Chloride 0.9% 1,000 ML IV SCH ×2 (00:26→19:28)
[2020-06-14] MEDS: HYDROcodone/Acetaminophen 10/325 mg Tablet PO PRN ×3 (02:42→20:51)
[2020-06-14 05:28] LABS: Mean Corpuscular HGB CONC 33.5 g/dL (32.0-36.0); Mean Corpuscular Hemoglobin 32.5 pg (27.0-31.0); Mean Corpuscular Volume 96.9 fL (78.0-98.0); Mean Platelet Volume 8.6 fL (7.4-10.4); Platelet Count 137 thou/uL (130-400); RBC Distribution Width 13.4 % (11.5-14.5); Red Blood Cell (RBC) Count 2.15 mill/uL (4.20-5.40); White Blood Cell (WBC) Count 3.7 thou/uL (4.8-10.8)
[2020-06-14] MEDS: traMADol HCl 50 MG TAB PO PRN (05:38)
[2020-06-14] MEDS: Levothyroxine 175 MCG TAB PO SCH (05:38)
[2020-06-14] MEDS ORDERED: Dextrose 5% in Water 1,000 ML IV PRN (07:57)
[2020-06-14] MEDS ORDERED: Insulin Regular 300 UNITS/3 ML VIAL SC PRN (07:57)
[2020-06-14] MEDS: Senokot S 8.6-50 MG TAB PO SCH ×2 (08:51→20:50)
[2020-06-14] MEDS: metFORMIN 500 MG TAB PO SCH (08:52)
[2020-06-14] MEDS: Cholecalciferol 1,000 UNITS (25 MCG) TAB PO SCH (08:52)
[2020-06-14] MEDS: Multivitamin W/ Minerals 1 TAB PO SCH (08:52)
[2020-06-14] MEDS: Ferrous Gluconate 324 MG TAB PO SCH ×2 (08:52→20:51)
[2020-06-14] MEDS: Calcium Carbonate 600 MG + Vit D TAB PO SCH ×2 (08:52→20:50)
[2020-06-14] MEDS: Cyanocobalamin (Vitamin B-12) 1,000 MCG TAB PO SCH (08:52)
[2020-06-14] MEDS: Amlodipine 5 MG TAB PO SCH (08:53)
[2020-06-14] MEDS: Leflunomide 10 mg Tablet PO SCH (09:00)
[2020-06-14] MEDS: Glimepiride 2 MG TAB PO SCH (09:00)
[2020-06-14] MEDS: Polyethylene Glycol 3350 17 GM Packet PO SCH (09:01)
[2020-06-14] MEDS: Dextrose 50% Abboject 50 ML SYRINGE SLOW IVP PRN ×2 (12:00→15:33)
[2020-06-14] MEDS: Dextrose 5 %-0.45 % NaCl 1,000 ML IV SCH (15:00)
--- NOTE | 2020-06-14 18:14 | PDOC.HOSPP ---
- Subjective Encounter Date: 06/14/20 Encounter Time: 15:00 Subjective: Patient seen and examined for medical management. Pain controlled at this time. Fitzgerald nauseous after pain medication this morning. Poor appetite today. - Objective Vital Signs & Weight: Vital Signs (12 hours) Temp Pulse Pulse Resp BP BP BP 06/14/20 15:21 98 F 84 16 117/68 06/14/20 15:00 98.0 F 64 16 117/68 06/14/20 12:16 98.0 F 66 18 110/67 06/14/20 11:52 98.0 F 67 18 117/50 L 06/14/20 11:50 98 F 72 16 117/55 L 06/14/20 08:53 73 06/14/20 07:09 97.7 F 73 18 117/63 Pulse Ox 06/14/20 15:21 98 06/14/20 15:00 06/14/20 12:16 06/14/20 11:52 06/14/20 11:50 97 06/14/20 08:53 06/14/20 07:09 96 Weight Admit Weight 149 lb Weight 149 lb I&O: 06/13/20 06/14/20 06/15/20 06:59 06:59 06:59 Intake Total 1200 2150 750 Balance 1200 2150 750 Result Diagrams: 06/14/20 05:13 Additional Labs: Accuchecks 06/14/20 06/14/20 06/14/20 15:26 12:34 12:02 POC Glucose 35 L* 136 H 35 L* Hospitalist ROS - Review of Systems Respiratory: denies: cough, dry, shortness of breath, hemoptysis, SOB with excertion, pleuritic pain, sputum, wheezing, other Cardiovascular: denies: chest pain, palpitations, orthopnea, paroxysmal noc. dyspnea, edema, light headedness, other - Medication Medications: Active Medications Generic Name Dose Route Start Last Admin Trade Name Freq PRN Reason Stop Dose Admin Hydrocodone Bitart/Acetaminophen 1 tab 06/10/20 07:15 06/12/20 13:22 Hydrocodone/Acetaminophen 10/325 Mg Tablet PO 1 tab Q4H PRN Administration Pain (1-3) Hydrocodone Bitart/Acetaminophen 2 tab 06/10/20 07:15 06/14/20 08:54 Hydrocodone/Acetaminophen 10/325 Mg Tablet PO 2 tab Q4H PRN Administration PAIN (4-6) Amlodipine Besylate 2.5 mg 06/10/20 09:00 06/14/20 08:53 Amlodipine 5 Mg Tab PO Not Given DAILY [facility] Aspirin 81 mg 06/10/20 21:00 06/13/20 20:20 Aspirin 81 Mg Enteric Coated Tablet PO 81 mg QPM [facility] Administration Atorvastatin Calcium 20 mg 06/10/20 21:00 06/13/20 20:21 Atorvastatin Calcium 20 Mg Tab PO 20 mg HS [facility] Administration Calcium/Vitamin D 1 tab 06/10/20 09:00 06/14/20 08:52 Calcium Carbonate 600 Mg + Vit D Tab PO 1 tab BID [facility] Administration Cholecalciferol 2,000 units 06/10/20 09:00 06/14/20 08:52 Cholecalciferol 1,000 Units (25 Mcg) Tab PO 2,000 units DAILY [facility] Administration Cyanocobalamin 1,000 mcg 06/10/20 09:00 06/14/20 08:52 Cyanocobalamin (Vitamin B-12) 1,000 Mcg Tab PO 1,000 mcg DAILY [facility] Administration Dextrose/Water 25 gm 06/14/20 07:57 06/14/20 15:33 Dextrose 50% Abboject 50 Ml Syringe SLOW IVP 25 gm PRN PRN Administration Hypoglycemia Fentanyl 50 mcg 06/10/20 07:13 06/13/20 22:05 Fentanyl 100 Mcg/2 Ml Vial SLOW IVP 50 mcg Q1H PRN Administration breakthrough pain Ferrous Gluconate 324 mg 06/10/20 09:00 06/14/20 08:52 Ferrous Gluconate 324 Mg Tab PO 324 mg BID [facility] Administration Dextrose/Sodium Chloride 1,000 mls @ 50 mls/hr 06/14/20 13:00 06/14/20 15:00 D5 1/2 Ns IV 1,000 mls .Q20H [facility] Administration Iron/Minerals/Multivitamins 1 tab 06/10/20 09:00 06/14/20 08:52 Multivitamin W/ Minerals 1 Tab PO 1 tab DAILY [facility] Administration Leflunomide 20 mg 06/10/20 09:00 06/14/20 09:00 Leflunomide 10 Mg Tablet PO 20 mg DAILY [facility] Administration Levothyroxine Sodium 87.5 mcg 06/11/20 06:00 06/14/20 05:38 Levothyroxine 175 Mcg Tab PO 87.5 mcg 0600 [facility] Administration Lisinopril 20 mg 06/10/20 21:00 06/13/20 20:22 Lisinopril 20 Mg Tab PO 20 mg QPM [facility] Administration Ondansetron HCl 4 mg 06/10/20 07:15 06/11/20 17:20 Ondansetron Pf 4 Mg/2 Ml Vial IVP 4 mg Q6H PRN Administration Nausea/Vomiting Pantoprazole Sodium 40 mg 06/10/20 09:00 06/14/20 08:53 Pantoprazole 40 Mg Tab PO 40 mg QAM [facility] Administration Polyethylene Glycol 17 gm 06/10/20 09:00 06/14/20 09:01 Polyethylene Glycol 3350 17 Gm Packet PO Not Given DAILY [facility] Senna/Docusate Sodium 2 tab 06/10/20 09:00 06/14/20 08:51 Senokot S 8.6-50 Mg Tab PO 2 tab BID [facility] Administration Sodium Chloride 10 ml 06/10/20 07:13 06/11/20 17:33 Flush - Normal Saline 10 Ml Syringe IVF 10 ml PRN PRN Administration Saline Flush Tramadol HCl 100 mg 06/10/20 07:15 06/14/20 05:38 Tramadol Hcl 50 Mg Tab PO 100 mg Q6H PRN Administration Moderate Pain 4-6 - Exam General Appearance: NAD Neck: supple, no JVD Heart: RRR, no gallops Respiratory: no wheezes, no ronchi Gastrointestinal: soft, non-distended Extremities: no cyanosis Neurological: no new deficit Musculoskeletal: generalized weakness Psychiatric: normal affect, A&O x 3 Hosp A/P (1) Hypoglycemia associated with type 2 diabetes mellitus Code(s): E11.649 - TYPE 2 DIABETES MELLITUS WITH HYPOGLYCEMIA WITHOUT COMA Status: Acute (2) HTN (hypertension) Code(s): I10 - ESSENTIAL (PRIMARY) HYPERTENSION Status: Chronic (3) Rheumatoid arthritis Code(s): M06.9 - RHEUMATOID ARTHRITIS, UNSPECIFIED Status: Chronic (4) Hypothyroidism Code(s): E03.9 - HYPOTHYROIDISM, UNSPECIFIED Status: Acute - Plan PT/OT, DVT proph w/SCDs 10/ Sliding scale started this morning. Blood sugars were in 30s. Glimepiride and metformin will be held. Will check blood sugars every 2 hours until blood sugars are stable. Received D50. Started on IV fluids with dextrose. Continue lisinopril, amlodipine, statins and levothyroxine. Check basic metabolic profile in a.m. Continue other medications as above.
[2020-06-14] MEDS: Atorvastatin Calcium 20 MG TAB PO SCH (20:50)
[2020-06-14] MEDS: Aspirin 81 mg Enteric Coated Tablet PO SCH (20:50)
[2020-06-14] MEDS: Lisinopril 20 MG TAB PO SCH (20:50)
[2020-06-15] MEDS: Dextrose 5 %-0.45 % NaCl 1,000 ML IV SCH (05:15)
[2020-06-15] MEDS: Levothyroxine 175 MCG TAB PO SCH (05:19)
[2020-06-15] MEDS: Fentanyl 100 MCG/2 ML VIAL SLOW IVP PRN (05:19)
[2020-06-15] MEDS: Ondansetron PF 4 MG/2 ML Vial IVP PRN (05:19)
[2020-06-15 06:50] LABS: Hemoglobin 8.9 g/dL (12.0-16.0); Mean Corpuscular HGB CONC 34.7 g/dL (32.0-36.0); Mean Corpuscular Hemoglobin 33.3 pg (27.0-31.0); Mean Corpuscular Volume 95.9 fL (78.0-98.0); Mean Platelet Volume 8.5 fL (7.4-10.4); Platelet Count 189 thou/uL (130-400); RBC Distribution Width 13.8 % (11.5-14.5); Red Blood Cell (RBC) Count 2.68 mill/uL (4.20-5.40); White Blood Cell (WBC) Count 3.9 thou/uL (4.8-10.8)
[2020-06-15 07:08] LABS: Anion Gap 16 mmol/L (10-20); BUN (Urea Nitrogen) 6 mg/dL (9.8-20.1); Calc. Creatinine Clearance 94 mL/min (70-130); Calcium 8.9 mg/dL (7.8-10.44); Carbon Dioxide 22 mmol/L (23-31); Chloride 107 mmol/L (98-107); Estimated GFR-MDRD Greater than 90; Glucose 141 mg/dL (83-110); Magnesium 1.7 mg/dL (1.6-2.6); Potassium 3.4 mmol/L (3.5-5.1); Sodium 142 mmol/L (136-145)
[2020-06-15] MEDS ORDERED: Potassium Chloride 20 MEQ TAB PO SCH (07:45)
[2020-06-15] MEDS: Senokot S 8.6-50 MG TAB PO SCH ×2 (07:52→21:00)
[2020-06-15] MEDS: Polyethylene Glycol 3350 17 GM Packet PO SCH (07:52)
[2020-06-15] MEDS: Calcium Carbonate 600 MG + Vit D TAB PO SCH ×2 (07:53→21:00)
[2020-06-15] MEDS: Cholecalciferol 1,000 UNITS (25 MCG) TAB PO SCH (07:53)
[2020-06-15] MEDS: HYDROcodone/Acetaminophen 10/325 mg Tablet PO PRN ×2 (07:54→21:08)
[2020-06-15] MEDS: Amlodipine 5 MG TAB PO SCH (07:54)
[2020-06-15] MEDS ORDERED: Magnesium 2 GM/50 ML 2 GM in Premix Bag 1 BAG IVPB SCH (08:00)
[2020-06-15] MEDS: Leflunomide 10 mg Tablet PO SCH (09:33)
[2020-06-15] MEDS: Multivitamin W/ Minerals 1 TAB PO SCH (09:43)
[2020-06-15] MEDS: Ferrous Gluconate 324 MG TAB PO SCH ×2 (09:43→21:00)
[2020-06-15] MEDS: Cyanocobalamin (Vitamin B-12) 1,000 MCG TAB PO SCH (09:43)
[2020-06-15] MEDS ORDERED: Insulin Regular 300 UNITS/3 ML VIAL ONE (16:18)
--- NOTE | 2020-06-15 16:57 | PDOC.HOSPP ---
- Subjective Encounter Date: 06/15/20 Encounter Time: 10:30 Subjective: Seen and examined for medical management. Pain controlled. Denies any nausea, vomiting, abdominal pain, chest pain or fever. - Objective Vital Signs & Weight: Vital Signs (12 hours) Temp Pulse Resp BP BP Pulse Ox 06/15/20 14:39 98.5 F 84 18 150/75 H 97 06/15/20 10:20 98.3 F 92 18 163/74 H 96 06/15/20 08:11 97 06/15/20 07:54 84 06/15/20 07:13 98.2 F 84 18 150/74 H 97 Weight Admit Weight 149 lb Weight 149 lb I&O: 06/14/20 06/15/20 06/16/20 06:59 06:59 06:59 Intake Total 2150 1290 Balance 2150 1290 Result Diagrams: 06/15/20 06:32 06/15/20 06:32 Additional Labs: Accuchecks 06/15/20 06/15/20 06/15/20 11:27 05:35 01:46 POC Glucose 190 H 121 H 96 06/15/20 06/14/20 00:21 22:31 POC Glucose 134 H 177 H Hospitalist ROS - Review of Systems Respiratory: denies: cough, dry, shortness of breath, hemoptysis, SOB with excer tion, pleuritic pain, sputum, wheezing, other Cardiovascular: denies: chest pain, palpitations, orthopnea, paroxysmal noc. dyspnea, edema, light headedness, other - Medication Medications: Active Medications Generic Name Dose Route Start Last Admin Trade Name Freq PRN Reason Stop Dose Admin Hydrocodone Bitart/Acetaminophen 1 tab 06/10/20 07:15 06/12/20 13:22 Hydrocodone/Acetaminophen 10/325 Mg Tablet PO 1 tab Q4H PRN Administration Pain (1-3) Hydrocodone Bitart/Acetaminophen 2 tab 06/10/20 07:15 06/15/20 07:54 Hydrocodone/Acetaminophen 10/325 Mg Tablet PO 2 tab Q4H PRN Administration PAIN (4-6) Amlodipine Besylate 2.5 mg 06/10/20 09:00 06/15/20 07:54 Amlodipine 5 Mg Tab PO 2.5 mg DAILY [facility] Administration Aspirin 81 mg 06/10/20 21:00 06/14/20 20:50 Aspirin 81 Mg Enteric Coated Tablet PO 81 mg QPM [facility] Administration Atorvastatin Calcium 20 mg 06/10/20 21:00 06/14/20 20:50 Atorvastatin Calcium 20 Mg Tab PO 20 mg HS [facility] Administration Calcium/Vitamin D 1 tab 06/10/20 09:00 06/15/20 07:53 Calcium Carbonate 600 Mg + Vit D Tab PO 1 tab BID [facility] Administration Cholecalciferol 2,000 units 06/10/20 09:00 06/15/20 07:53 Cholecalciferol 1,000 Units (25 Mcg) Tab PO 2,000 units DAILY [facility] Administration Cyanocobalamin 1,000 mcg 06/10/20 09:00 06/15/20 09:43 Cyanocobalamin (Vitamin B-12) 1,000 Mcg Tab PO Not Given DAILY [facility] Dextrose/Water 25 gm 06/14/20 07:57 06/14/20 15:33 Dextrose 50% Abboject 50 Ml Syringe SLOW IVP 25 gm PRN PRN Administration Hypoglycemia Fentanyl 50 mcg 06/10/20 07:13 06/15/20 05:19 Fentanyl 100 Mcg/2 Ml Vial SLOW IVP 50 mcg Q1H PRN Administration breakthrough pain Ferrous Gluconate 324 mg 06/10/20 09:00 06/15/20 09:43 Ferrous Gluconate 324 Mg Tab PO Not Given BID [facility] Iron/Minerals/Multivitamins 1 tab 06/10/20 09:00 06/15/20 09:43 Multivitamin W/ Minerals 1 Tab PO Not Given DAILY [facility] Leflunomide 20 mg 06/10/20 09:00 06/15/20 09:33 Leflunomide 10 Mg Tablet PO 20 mg DAILY [facility] Administration Levothyroxine Sodium 87.5 mcg 06/11/20 06:00 06/15/20 05:19 Levothyroxine 175 Mcg Tab PO 87.5 mcg 0600 [facility] Administration Lisinopril 20 mg 06/10/20 21:00 06/14/20 20:50 Lisinopril 20 Mg Tab PO 20 mg QPM [facility] Administration Ondansetron HCl 4 mg 06/10/20 07:15 06/15/20 05:19 Ondansetron Pf 4 Mg/2 Ml Vial IVP 4 mg Q6H PRN Administration Nausea/Vomiting Pantoprazole Sodium 40 mg 06/10/20 09:00 06/15/20 07:54 Pantoprazole 40 Mg Tab PO 40 mg QAM [facility] Administration Polyethylene Glycol 17 gm 06/10/20 09:00 06/15/20 07:52 Polyethylene Glycol 3350 17 Gm Packet PO 17 gm DAILY [facility] Administration Senna/Docusate Sodium 2 tab 06/10/20 09:00 06/15/20 07:52 Senokot S 8.6-50 Mg Tab PO 2 tab BID [facility] Administration Sodium Chloride 10 ml 06/10/20 07:13 06/15/20 09:33 Flush - Normal Saline 10 Ml Syringe IVF 10 ml PRN PRN Administration Saline Flush Tramadol HCl 100 mg 06/10/20 07:15 06/14/20 05:38 Tramadol Hcl 50 Mg Tab PO 100 mg Q6H PRN Administration Moderate Pain 4-6 - Exam General Appearance: NAD Neck: supple, no JVD Heart: RRR, no gallops Respiratory: no wheezes, no rales Gastrointestinal: soft, non-distended, no guarding Extremities: no cyanosis, no clubbing Hosp A/P (1) Hypoglycemia associated with type 2 diabetes mellitus Code(s): E11.649 - TYPE 2 DIABETES MELLITUS WITH HYPOGLYCEMIA WITHOUT COMA Status: Acute (2) Electrolyte abnormality Code(s): E87.8 - OTH DISORDERS OF ELECTROLYTE AND FLUID BALANCE, NEC Status: Acute (3) HTN (hypertension) Code(s): I10 - ESSENTIAL (PRIMARY) HYPERTENSION Status: Chronic (4) Rheumatoid arthritis Code(s): M06.9 - RHEUMATOID ARTHRITIS, UNSPECIFIED Status: Chronic (5) Hypothyroidism Code(s): E03.9 - HYPOTHYROIDISM, UNSPECIFIED Status: Acute - Plan 06/15 Replace magnesium and potassium. Continue lisinopril, amlodipine, Lipitor and other medications as above. Discontinue IV dextrose. Change Accu-Cheks to before meals at bedtime. Glimepiride and metformin on hold. Continue to monitor 10 Sliding scale started this morning. Blood sugars were in 30s. Glimepiride and metformin will be held. Will check blood sugars every 2 hours until blood sugars are stable. Received D50. Started on IV fluids with dextrose. Continue lisinopril, amlodipine, statins and levothyroxine. Check basic metabolic profile in a.m. Continue other medications as above.
[2020-06-15] MEDS: Insulin Regular 300 UNITS/3 ML VIAL SC PRN (18:24)
[2020-06-15] MEDS ORDERED: metFORMIN 500 MG TAB PO SCH (18:30)
[2020-06-15] MEDS: Magnesium Chloride 64 MG TAB PO SCH (21:00)
[2020-06-15] MEDS: Atorvastatin Calcium 20 MG TAB PO SCH (21:00)
[2020-06-15] MEDS: Aspirin 81 mg Enteric Coated Tablet PO SCH (21:00)
[2020-06-15] MEDS: Lisinopril 20 MG TAB PO SCH (21:02)
[2020-06-16] MEDS: HYDROcodone/Acetaminophen 10/325 mg Tablet PO PRN ×5 (01:55→22:15)
[2020-06-16] MEDS: Levothyroxine 175 MCG TAB PO SCH (05:06)
[2020-06-16 05:26] LABS: Hemoglobin 8.3 g/dL (12.0-16.0); Mean Corpuscular HGB CONC 36.3 g/dL (32.0-36.0); Mean Corpuscular Hemoglobin 34.9 pg (27.0-31.0); Mean Corpuscular Volume 96.3 fL (78.0-98.0); Platelet Count 196 thou/uL (130-400); RBC Distribution Width 14.4 % (11.5-14.5); Red Blood Cell (RBC) Count 2.38 mill/uL (4.20-5.40); White Blood Cell (WBC) Count 3.9 thou/uL (4.8-10.8)
[2020-06-16] MEDS ORDERED: glipiZIDE 5 MG TAB PO SCH (07:30)
[2020-06-16] MEDS: Polyethylene Glycol 3350 17 GM Packet PO SCH (09:32)
[2020-06-16] MEDS: metFORMIN 500 MG TAB PO SCH ×2 (09:32→18:06)
[2020-06-16] MEDS: Amlodipine 5 MG TAB PO SCH (09:33)
[2020-06-16] MEDS: Magnesium Chloride 64 MG TAB PO SCH ×2 (09:34→21:33)
[2020-06-16] MEDS: Calcium Carbonate 600 MG + Vit D TAB PO SCH ×2 (09:34→21:32)
[2020-06-16] MEDS: Leflunomide 10 mg Tablet PO SCH (09:34)
[2020-06-16] MEDS: Cyanocobalamin (Vitamin B-12) 1,000 MCG TAB PO SCH (09:35)
[2020-06-16] MEDS: Ferrous Gluconate 324 MG TAB PO SCH ×2 (09:35→21:32)
[2020-06-16] MEDS: Multivitamin W/ Minerals 1 TAB PO SCH (09:36)
[2020-06-16] MEDS: Senokot S 8.6-50 MG TAB PO SCH ×2 (09:36→21:32)
[2020-06-16] MEDS: Cholecalciferol 1,000 UNITS (25 MCG) TAB PO SCH (09:41)
--- NOTE | 2020-06-16 10:00 | PDOC.HOSPP ---
- Subjective Encounter Date: 06/16/20 Encounter Time: 10:00 Subjective: Patient seen and examined for pain management. Denies any new complaints. - Objective Vital Signs & Weight: Vital Signs (12 hours) Temp Pulse Resp BP Pulse Ox 06/16/20 09:33 68 06/16/20 07:55 98.7 F 68 14 107/65 96 06/16/20 05:00 97.8 F 67 16 129/68 97 06/16/20 00:12 98.5 F 71 16 111/62 97 Weight Admit Weight 149 lb Weight 149 lb I&O: 06/15/20 06/16/20 06/17/20 06:59 06:59 06:59 Intake Total 1290 900 480 Balance 1290 900 480 Result Diagrams: 06/16/20 04:51 06/15/20 06:32 Additional Labs: Accuchecks 06/16/20 06/15/20 06/15/20 05:36 21:35 18:02 POC Glucose 109 H 247 H 244 H 06/15/20 11:27 POC Glucose 190 H Hospitalist ROS - Review of Systems Respiratory: denies: cough, dry, shortness of breath, hemoptysis, SOB with excertion, pleuritic pain, sputum, wheezing, other Cardiovascular: denies: chest pain, palpitations, orthopnea, paroxysmal noc. dyspnea, edema, light headedness, other - Medication Medications: Active Medications Generic Name Dose Route Start Last Admin Trade Name Freq PRN Reason Stop Dose Admin Hydrocodone Bitart/Acetaminophen 1 tab 06/10/20 07:15 06/12/20 13:22 Hydrocodone/Acetaminophen 10/325 Mg Tablet PO 1 tab Q4H PRN Administration Pain (1-3) Hydrocodone Bitart/Acetaminophen 2 tab 06/10/20 07:15 06/16/20 06:00 Hydrocodone/Acetaminophen 10/325 Mg Tablet PO 2 tab Q4H PRN Administration PAIN (4-6) Amlodipine Besylate 2.5 mg 06/10/20 09:00 06/16/20 09:33 Amlodipine 5 Mg Tab PO Not Given DAILY CORINNE Aspirin 81 mg 06/10/20 21:00 06/15/20 21:00 Aspirin 81 Mg Enteric Coated Tablet PO 81 mg QPM CORINNE Administration Atorvastatin Calcium 20 mg 06/10/20 21:00 06/15/20 21:00 Atorvastatin Calcium 20 Mg Tab PO 20 mg HS CORINNE Administration Calcium/Vitamin D 1 tab 06/10/20 09:00 06/16/20 09:34 Calcium Carbonate 600 Mg + Vit D Tab PO 1 tab BID CORINNE Administration Cholecalciferol 2,000 units 06/10/20 09:00 06/16/20 09:41 Cholecalciferol 1,000 Units (25 Mcg) Tab PO 2,000 units DAILY CORINNE Administration Cyanocobalamin 1,000 mcg 06/10/20 09:00 06/16/20 09:35 Cyanocobalamin (Vitamin B-12) 1,000 Mcg Tab PO 1,000 mcg DAILY CORINNE Administration Dextrose/Water 25 gm 06/14/20 07:57 06/14/20 15:33 Dextrose 50% Abboject 50 Ml Syringe SLOW IVP 25 gm PRN PRN Administration Hypoglycemia Fentanyl 50 mcg 06/10/20 07:13 06/15/20 05:19 Fentanyl 100 Mcg/2 Ml Vial SLOW IVP 50 mcg Q1H PRN Administration breakthrough pain Ferrous Gluconate 324 mg 06/10/20 09:00 06/16/20 09:35 Ferrous Gluconate 324 Mg Tab PO 324 mg BID CORINNE Administration Insulin Human Regular 0 units 06/14/20 07:57 06/15/20 18:24 Insulin Regular 300 Units/3 Ml Vial SC 3 unit .MILD SLIDING SCALE PRN Administration Mild Correctional Scale Iron/Minerals/Multivitamins 1 tab 06/10/20 09:00 06/16/20 09:36 Multivitamin W/ Minerals 1 Tab PO 1 tab DAILY CORINNE Administration Leflunomide 20 mg 06/10/20 09:00 06/16/20 09:34 Leflunomide 10 Mg Tablet PO 20 mg DAILY CORINNE Administration Levothyroxine Sodium 87.5 mcg 06/11/20 06:00 06/16/20 05:06 Levothyroxine 175 Mcg Tab PO 87.5 mcg 0600 CORINNE Administration Lisinopril 20 mg 06/10/20 21:00 06/15/20 21:02 Lisinopril 20 Mg Tab PO 20 mg QPM CORINNE Administration Magnesium Chloride 64 mg 06/15/20 21:00 06/16/20 09:34 Magnesium Chloride 64 Mg Tab PO 64 mg BID CORINNE Administration Metformin HCl 500 mg 06/16/20 08:00 06/16/20 09:32 Metformin 500 Mg Tab PO 500 mg BID-WM CORINNE Administration Ondansetron HCl 4 mg 06/10/20 07:15 06/15/20 05:19 Ondansetron Pf 4 Mg/2 Ml Vial IVP 4 mg Q6H PRN Administration Nausea/Vomiting Pantoprazole Sodium 40 mg 06/10/20 09:00 06/16/20 09:35 Pantoprazole 40 Mg Tab PO 40 mg QAM CORINNE Administration Polyethylene Glycol 17 gm 06/10/20 09:00 06/16/20 09:32 Polyethylene Glycol 3350 17 Gm Packet PO 17 gm DAILY CORINNE Administration Senna/Docusate Sodium 2 tab 06/10/20 09:00 06/16/20 09:36 Senokot S 8.6-50 Mg Tab PO Not Given BID CORINNE Sodium Chloride 10 ml 06/10/20 07:13 06/15/20 09:33 Flush - Normal Saline 10 Ml Syringe IVF 10 ml PRN PRN Administration Saline Flush Tramadol HCl 100 mg 06/10/20 07:15 06/14/20 05:38 Tramadol Hcl 50 Mg Tab PO 100 mg Q6H PRN Administration Moderate Pain 4-6 - Exam General Appearance: NAD Neck: supple, no JVD Heart: RRR, no gallops Respiratory: no wheezes, no ronchi Gastrointestinal: soft, non-tender, normal bowel sounds Extremities: no cyanosis Hosp A/P (1) Hypoglycemia associated with type 2 diabetes mellitus Code(s): E11.649 - TYPE 2 DIABETES MELLITUS WITH HYPOGLYCEMIA WITHOUT COMA Status: Acute (2) Electrolyte abnormality Code(s): E87.8 - OTH DISORDERS OF ELECTROLYTE AND FLUID BALANCE, NEC Status: Acute (3) HTN (hypertension) Code(s): I10 - ESSENTIAL (PRIMARY) HYPERTENSION Status: Chronic (4) Rheumatoid arthritis Code(s): M06.9 - RHEUMATOID ARTHRITIS, UNSPECIFIED Status: Chronic (5) Hypothyroidism Code(s): E03.9 - HYPOTHYROIDISM, UNSPECIFIED Status: Acute - Plan DVT proph w/SCDs 06/16 Metformin started yesterday evening. Continue to monitor blood sugars before meals at bedtime. Hold sulfonylureas for now. Continue lisinopril, amlodipine and other medications for now. 06/15 Replace magnesium and potassium. Continue lisinopril, amlodipine, Lipitor and other medications as above. Discontinue IV dextrose. Change Accu-Cheks to before meals at bedtime. Glimepiride and metformin on hold. Continue to monitor 10/9 Sliding scale started this morning. Blood sugars were in 30s. Glimepiride and metformin will be held. Will check blood sugars every 2 hours until blood sugars are stable. Received D50. Started on IV fluids with dextrose. Continue lisinopril, amlodipine, statins and levothyroxine. Check basic metabolic profile in a.m. Continue other medications as above.
[2020-06-16] MEDS: Aspirin 81 mg Enteric Coated Tablet PO SCH (21:32)
[2020-06-16] MEDS: Lisinopril 20 MG TAB PO SCH (21:32)
[2020-06-16] MEDS: Atorvastatin Calcium 20 MG TAB PO SCH (21:32)
[2020-06-17] MEDS: Levothyroxine 175 MCG TAB PO SCH (05:13)
[2020-06-17] MEDS: HYDROcodone/Acetaminophen 10/325 mg Tablet PO PRN (05:15)
--- NOTE | 2020-06-17 05:44 | PRG ---
DATE OF SERVICE: 06/16/2020 SUBJECTIVE: The patient is feeling better. Her pain has improved. She is able to do more with physical therapy and is starting to feel much better since the [facility] worked on her glucose levels and since she has received 1 unit of packed red blood cells. OBJECTIVE: Her vital signs are stable. She is afebrile. Blood pressures are stable. Saturations stable on room air. LABORATORY DATA: CBC today showed her hemoglobin to be 8.3, hematocrit 23.0, white cell 3.9, and platelet count of 196. Chemistries today showed her glucose to be 109 and 128 in the morning and as far as therapy is concerned, the patient walked apparently a 1000 feet. PLAN: At this time, I do believe that Ms. Lowe is getting to the point where medically she is stable, so that she can be discharged to either home or to a half-way facility. Upon repeat questioning today, it does appear that Ms. Lowe would like to go to a half-way facility and hopefully that will be arranged, so that she can leave on Wednesday. Job ID: [id number] MTDD
[2020-06-17 06:19] LABS: Hemoglobin 9.3 g/dL (12.0-16.0); Mean Corpuscular HGB CONC 35.7 g/dL (32.0-36.0); Mean Corpuscular Hemoglobin 34.5 pg (27.0-31.0); Mean Corpuscular Volume 96.6 fL (78.0-98.0); Mean Platelet Volume 7.8 fL (7.4-10.4); Platelet Count 247 thou/uL (130-400); RBC Distribution Width 13.9 % (11.5-14.5); Red Blood Cell (RBC) Count 2.71 mill/uL (4.20-5.40); White Blood Cell (WBC) Count 4.2 thou/uL (4.8-10.8)
[2020-06-17] MEDS: metFORMIN 500 MG TAB PO SCH (08:20)
[2020-06-17] MEDS: Magnesium Chloride 64 MG TAB PO SCH (08:20)
[2020-06-17] MEDS: Polyethylene Glycol 3350 17 GM Packet PO SCH (08:20)
[2020-06-17] MEDS: Cholecalciferol 1,000 UNITS (25 MCG) TAB PO SCH (08:21)
[2020-06-17] MEDS: Senokot S 8.6-50 MG TAB PO SCH (08:21)
[2020-06-17] MEDS: Calcium Carbonate 600 MG + Vit D TAB PO SCH (08:22)
[2020-06-17] MEDS: Multivitamin W/ Minerals 1 TAB PO SCH (08:22)
[2020-06-17] MEDS: Ferrous Gluconate 324 MG TAB PO SCH (08:22)
[2020-06-17] MEDS: Cyanocobalamin (Vitamin B-12) 1,000 MCG TAB PO SCH (08:22)
[2020-06-17] MEDS: Amlodipine 5 MG TAB PO SCH (08:23)
[2020-06-17] MEDS: Leflunomide 10 mg Tablet PO SCH (09:41)
[2020-06-17] MEDS: Insulin Regular 300 UNITS/3 ML VIAL SC PRN ×2 (12:09→16:26)
[2020-06-17 16:32] VITALS: BP 129/71; TEMP 99
--- NOTE | 2020-06-17 19:41 | PDOC.HOSPP ---
- Subjective Encounter Date: 06/17/20 Encounter Time: 08:00 Subjective: Patient seen and examined for medical management. Denies any nausea, fever, shortness of breath or chest pain. Symptomatically feels much better. - Objective Vital Signs & Weight: Vital Signs (12 hours) Temp Pulse Resp BP BP BP Pulse Ox 06/17/20 14:58 99 F 106 H 18 129/71 95 06/17/20 11:36 98.1 F 75 18 129/54 L 97 06/17/20 08:23 74 118/64 06/17/20 08:18 97 Weight Admit Weight 149 lb Weight 149 lb I&O: 06/16/20 06/17/20 06/18/20 06:59 06:59 06:59 Intake Total 900 1920 473 Balance 900 1920 473 Result Diagrams: 06/17/20 05:24 06/15/20 06:32 Additional Labs: Accuchecks 06/17/20 06/17/20 06/17/20 15:40 11:41 05:23 POC Glucose 166 H 191 H 115 H 06/16/20 06/16/20 06/15/20 21:43 16:06 03:46 POC Glucose 198 H 165 H 102 H 06/14/20 06/14/20 06/14/20 19:35 15:56 15:23 POC Glucose 187 H 166 H 28 L* Hospitalist ROS - Review of Systems Cardiovascular: denies: chest pain, palpitations, orthopnea, paroxysmal noc. dyspnea, edema, light headedness, other Gastrointestinal: denies: nausea, vomiting, abdominal pain, diarrhea, constipation, melena, hematochezia, other - Exam General Appearance: NAD Heart: RRR, no gallops Respiratory: no wheezes, no ronchi Gastrointestinal: non-tender, normal bowel sounds Extremities: no cyanosis Hosp A/P (1) Hypoglycemia associated with type 2 diabetes mellitus Code(s): E11.649 - TYPE 2 DIABETES MELLITUS WITH HYPOGLYCEMIA WITHOUT COMA Status: Acute (2) Electrolyte abnormality Code(s): E87.8 - OTH DISORDERS OF ELECTROLYTE AND FLUID BALANCE, NEC Status: Acute (3) HTN (hypertension) Code(s): I10 - ESSENTIAL (PRIMARY) HYPERTENSION Status: Chronic (4) Rheumatoid arthritis Code(s): M06.9 - RHEUMATOID ARTHRITIS, UNSPECIFIED Status: Chronic (5) Hypothyroidism Code(s): E03.9 - HYPOTHYROIDISM, UNSPECIFIED Status: Acute - Plan 06/17 Await placement. Continue metformin. Will avoid sulfonylureas due to high risk of hypoglycemia at home. Patient was advised to monitor blood sugars on a daily basis and to maintain a log. Continue amlodipine and other antihypertensives for now. 06/16 Metformin started yesterday evening. Continue to monitor blood sugars before meals at bedtime. Hold sulfonylureas for now. Continue lisinopril, amlodipine and other medications for now. 06/15 Replace magnesium and potassium. Continue lisinopril, amlodipine, Lipitor and other medications as above. Discontinue IV dextrose. Change Accu-Cheks to before meals at bedtime. Glimepiride and metformin on hold. Continue to monitor 06/14 Sliding scale started this morning. Blood sugars were in 30s. Glimepiride and metformin will be held. Will check blood sugars every 2 hours until blood sugars are stable. Received D50. Started on IV fluids with dextrose. Continue lisinopril, amlodipine, statins and levothyroxine. Check basic metabolic profile in a.m. Continue other medications as above.
--- NOTE | 2020-06-18 12:45 | DIS ---
DATE OF ADMISSION: 06/10/2020 DATE OF DISCHARGE: 06/17/2020 DISCHARGE DISPOSITION: To home. ADMISSION DIAGNOSIS: End-stage tricompartmental osteoarthritis, right knee. DISCHARGE DIAGNOSIS: End-stage tricompartmental osteoarthritis, right knee. OPERATIVE PROCEDURE: Right total knee arthroplasty. OTHER PROCEDURE: Transfusion of 1 unit packed red blood cells. CONSULTANTS: Hospitalist for medical management and [employer] [facility] Anesthesia. BRIEF CLINICAL HISTORY: Hoda is a 74-year-old female, who was admitted to [facility], underwent the above elective procedure on date of admission without intra-, mariana-, or postoperative complication. Her hospital course was unremarkable with the exception of the patient failing to reach discharge criteria for home discharge to include ADLs and distances walked. She complained bitterly of pain. Therefore, medication adjustments were made. At the time of discharge, patient is afebrile. She is ambulatory without assistance, utilizing a rolling walker distances up to 5 and 600 feet, tolerating regular diet, voiding without difficulty. She required transfusion x1 on postop day 3, which significantly improved her anemia. At the time of discharge, patient's hemoglobin was 9.3 and she was asymptomatic with hematocrit of 26.1. We will be happy to see the patient on an as-needed basis between now and her next scheduled appointment in 2 to 3 weeks. CONDITION ON DISCHARGE: Stable. PROGNOSIS: Good. Job ID: [id number]
== END 2020-06-17 16:30 | disposition home or self-care (01) | DRG 470 ==
LOC: SURG A 05:31 → SJJU 10:25
PROVIDERS: ADMIT Orthopaedic Surgery; ATTEND Orthopaedic Surgery
PROC: 0SRC0J9 Replacement of Right Knee Joint with Synthetic Substitute, Cemented, Open Approach (ICD-10-PCS; principal; 2020-06-10)
DX: M17.11 Unilateral primary osteoarthritis, right knee (principal); D62 Acute posthemorrhagic anemia; J32.9 Chronic sinusitis, unspecified; I10 Essential (primary) hypertension; E78.5 Hyperlipidemia, unspecified; E78.00 Pure hypercholesterolemia, unspecified; J45.909 Unspecified asthma, uncomplicated; Z20.828 Contact with and (suspected) exposure to other viral communicable diseases; K21.9 Gastro-esophageal reflux disease without esophagitis; M06.9 Rheumatoid arthritis, unspecified; E03.9 Hypothyroidism, unspecified; E11.649 Type 2 diabetes mellitus with hypoglycemia without coma; E87.8 Other disorders of electrolyte and fluid balance, not elsewhere classified; Z90.49 Acquired absence of other specified parts of digestive tract; Z90.710 Acquired absence of both cervix and uterus; Z79.82 Long term (current) use of aspirin; Z79.890 Hormone replacement therapy; Z79.84 Long term (current) use of oral hypoglycemic drugs; Z79.899 Other long term (current) drug therapy
CPT/HCPCS: 36415; 36416; 36430; 80048; 83735; 85027; 86850; 86900; 86901; C1713; C1776; J0690; J1815; J1885; J2001; J2250; J2370; J2405; J2704; J2765; J2795; J3010; J3370; J3475; J3490; P9016; S0020

== ENCOUNTER 2020-08-28 19:23 | Emergency (ER) | payer MEDICARE, MEDICAID ==
[2020-08-28 20:42] LABS: #Eosinphils 0.1 thou/uL (0.0-0.7); #Lymphocytes 1.9 thou/uL (1.20-3.40); #Monocytes 0.4 thou/uL (0.11-0.59); #Neutrophils 5.2 thou/uL (1.40-6.50); %Basophils 0.5 % (0.0-1.0); %Eosinophils 1.6 % (0.0-10.0); %Lymphocytes 24.1 % (21.0-51.0); %Monocytes 5.6 % (0.0-10.0); %Neutrophils 68.2 % (42.0-75.0); Hemoglobin 11.6 g/dL (12.0-16.0); Mean Corpuscular HGB CONC 33.7 g/dL (32.0-36.0); Mean Corpuscular Volume 94.9 fL (78.0-98.0); Mean Platelet Volume 9.3 fL (7.4-10.4); Platelet Count 233 thou/uL (130-400); RBC Distribution Width 13.1 % (11.5-14.5); Red Blood Cell (RBC) Count 3.61 mill/uL (4.20-5.40); White Blood Cell (WBC) Count 7.7 thou/uL (4.8-10.8)
[2020-08-28 21:05] LABS: ALT (SGPT) 9 U/L (8-55); AST (SGOT) 18 U/L (5-34); Alkaline Phosphatase 100 U/L (40-110); Anion Gap 16 mmol/L (10-20); BUN (Urea Nitrogen) 19 mg/dL (9.8-20.1); Bilirubin, Total 0.4 mg/dL (0.2-1.2); Calc. Creatinine Clearance 0 mL/min (70-130); Carbon Dioxide 24 mmol/L (23-31); Chloride 102 mmol/L (98-107); Globulin 3.4 g/dL (2.4-3.5); Glucose 100 mg/dL (83-110); Lipase 16 U/L (8-78); Protein, Total 7.4 g/dL (6.0-8.3); Sodium 138 mmol/L (136-145)
[2020-08-28] MEDS ORDERED: Vancomycin HCl 1.25 GM in Sodium Chloride 0.9% 250 ML 250 ML IVPB SCH (22:45)
[2020-08-28] MEDS ORDERED: cefTRIAXone\\ROCEPHIN 2 GM in Sodium Chloride 0.9% 100 ML IVPB SCH (22:45)
[2020-08-28] MEDS ORDERED: cefTRIAXone\\ROCEPHIN 2 GM VIAL ONE (22:45)
[2020-08-28 23:05] LABS: Bacteria/HPF None Seen HPF (None Seen); Bilirubin Negative (Negative); Blood, Urine Negative (Negative); Clarity Clear (Clear); Glucose, Urine (Dipstick) Normal (Negative); Ketone, Urine 40 mg/dL (Negative); Leukocyte 75 Leu/uL (Negative); Nitrite Negative (Negative); Protein, Urine (Dipstick) 100 mg/dL (Neg-Trace); RBC/HPF 0-3 HPF (0-3); Specific Gravity, Urine 1.027 (1.002-1.036); Squamous Epithelial 0-3 HPF (0-3); Urobilinogen Normal mg/dL (Less than 2)
--- NOTE | 2020-08-29 00:08 | CT ---
CT Abdomen Pelvis W Con: 08/28/2020 11:40 PM CLINICAL INFORMATION: Abdominal pressure and suprapubic/left lower quadrant abdominal pain COMPARISON: 03/14/2013 TECHNIQUE: Multiple contiguous axial images were obtained and a CT of the abdomen and pelvis with IV contrast. C oronal and sagittal reformats were performed. FINDINGS: Lower Chest: Right lower lobe calcified granuloma Abdomen: Liver: within normal limits. Bile Ducts: Normal caliber. Gallbladder: Removed Pancreas: within normal limits. Spleen: within normal limits. Adrenals: within normal limits. Kidneys: within normal limits. Pelvis: Reproductive Organs: Status post hysterectomy. A 2.0 cm hypodensity along the right pelvic sidewall l ikely represents a cyst in the right ovary. This was seen on the prior examination but much smaller. Ureters: within normal limits. Bladder: within normal limits. Peritoneum: No ascites or free air, no fluid collection. Bowel: Normal caliber. Scattered diverticula are seen in the sigmoid colon. Inflammatory changes seen surrounding the diverticula in the sigmoid colon consistent with acute diverticulitis. Mesentery and Retroperitoneum: No enlarged mesenteric or retroperitoneal lymph nodes. Vessels: Atherosclerotic calcifications. Abdominal Wall: within normal limits. Bones: Degenerative changes in the spine. IMPRESSION: 1. Acute diverticulitis 2. Right ovarian cyst
== END 2020-08-29 00:56 | disposition home or self-care (01) ==
LOC: ERS 19:23
DX: K57.32 Diverticulitis of large intestine without perforation or abscess without bleeding (principal); R94.31 Abnormal electrocardiogram [ECG] [EKG]; K21.9 Gastro-esophageal reflux disease without esophagitis; M06.9 Rheumatoid arthritis, unspecified; E03.9 Hypothyroidism, unspecified; I10 Essential (primary) hypertension; E78.5 Hyperlipidemia, unspecified; E78.00 Pure hypercholesterolemia, unspecified
CPT/HCPCS: 36415; 74177; 80053; 81003; 81015; 83605; 83690; 85025; 87040; 93005; J0696; J3370; J3490; J7050

== ENCOUNTER 2020-09-08 07:17 | Emergency (ER) | payer MEDICARE, MEDICAID ==
[2020-09-08] MEDS ORDERED: Ketorolac Tromethamine 30 MG/ML VIAL ONE (08:02)
[2020-09-08] MEDS ORDERED: Acetaminophen 500 MG TAB ONE (08:02)
--- NOTE | 2020-09-08 08:27 | RAD ---
Chest one view HISTORY: Pleurisy. COMPARISON: 03/28/2008. FINDINGS: Cardiac silhouette is magnified by projection. Pulmonary vasculature are unremarkable. Mediastinum is midline. No confluent airspace consolidation or evidence of pneumothorax. IMPRESSION : No abnormalities are demonstrated.
--- NOTE | 2020-09-08 09:15 | CT ---
CT abdomen and pelvis with IV contrast HISTORY: Left flank pain. COMPARISON: 08/28/2020. FINDINGS: Calcified granuloma at the right lung base stable. The gallbladder, uterus, and appendix ap pear to be surgically absent. Solid organs of the abdomen are intact. Scattered diverticula arise from the colon. Minimal stranding/scarring remains adjacent to the sigmoi d colon where diverticulitis was evident on the prior exam. Follicle at the right ovary now measures 1.8 cm. There are prominent degenerative changes of the lumbar spine, including severe central canal stenoses at the lowest 4 levels. IMPRESSION : Near complete resolution of inflammation associated with the sigmoid diverticulitis on the 08/28/2020 exam. No new abnormalities are evident.
[2020-09-08 09:26] LABS: #Eosinphils 0.1 thou/uL (0.0-0.7); #Lymphocytes 1.4 thou/uL (1.20-3.40); #Monocytes 0.5 thou/uL (0.11-0.59); %Basophils 0.5 % (0.0-1.0); %Eosinophils 2.1 % (0.0-10.0); %Lymphocytes 19.9 % (21.0-51.0); %Monocytes 6.8 % (0.0-10.0); %Neutrophils 70.6 % (42.0-75.0); Hemoglobin 10.2 g/dL (12.0-16.0); Mean Corpuscular HGB CONC 37.1 g/dL (32.0-36.0); Mean Corpuscular Hemoglobin 35.5 pg (27.0-31.0); Mean Corpuscular Volume 95.9 fL (78.0-98.0); Mean Platelet Volume 9.6 fL (7.4-10.4); Platelet Count 216 thou/uL (130-400); RBC Distribution Width 14.2 % (11.5-14.5); Red Blood Cell (RBC) Count 2.87 mill/uL (4.20-5.40)
[2020-09-08 09:42] LABS: ALT (SGPT) 14 U/L (8-55); AST (SGOT) 21 U/L (5-34); Albumin 3.9 g/dL (3.4-4.8); Alkaline Phosphatase 90 U/L (40-110); Anion Gap 13 mmol/L (10-20); BUN (Urea Nitrogen) 17 mg/dL (9.8-20.1); Bilirubin, Total 0.4 mg/dL (0.2-1.2); Calc. Creatinine Clearance 0 mL/min (70-130); Carbon Dioxide 26 mmol/L (23-31); Chloride 105 mmol/L (98-107); Glucose 93 mg/dL (83-110); Lipase 23 U/L (8-78); Potassium 3.8 mmol/L (3.5-5.1); Protein, Total 6.9 g/dL (6.0-8.3); Sodium 140 mmol/L (136-145)
[2020-09-08 10:15] LABS: Bacteria/HPF None Seen HPF (None Seen); Bilirubin Negative (Negative); Blood, Urine Negative (Negative); Clarity Clear (Clear); Glucose, Urine (Dipstick) Normal (Negative); Ketone, Urine Negative (Negative); Leukocyte 25 Leu/uL (Negative); Nitrite Negative (Negative); Protein, Urine (Dipstick) 20 mg/dL (Neg-Trace); RBC/HPF 0-3 HPF (0-3); Squamous Epithelial 0-3 HPF (0-3); Urobilinogen Normal mg/dL (Less than 2); pH, Urine 6.5 (5.0-9.0)
[2020-09-08] MEDS ORDERED: Iopamidol-370 76% 500 ML 1 ML ONE (11:57)
== END 2020-09-08 10:53 | disposition home or self-care (01) ==
LOC: ERS 07:17
DX: N39.0 Urinary tract infection, site not specified (principal); K21.9 Gastro-esophageal reflux disease without esophagitis; M06.9 Rheumatoid arthritis, unspecified; E11.9 Type 2 diabetes mellitus without complications; E03.9 Hypothyroidism, unspecified; E78.5 Hyperlipidemia, unspecified; E78.00 Pure hypercholesterolemia, unspecified; Z79.84 Long term (current) use of oral hypoglycemic drugs; Z79.899 Other long term (current) drug therapy
CPT/HCPCS: 71045; 74177; 80053; 81003; 81015; 83690; 84484; 85025; 93005; 96374; J1885; Q9967

== ENCOUNTER 2020-09-10 09:11 | Emergency (ER) | payer MEDICARE, MEDICAID ==
[2020-09-10 09:43] LABS: #Eosinphils 0.1 thou/uL (0.0-0.7); #Lymphocytes 1.1 thou/uL (1.20-3.40); #Monocytes 0.2 thou/uL (0.11-0.59); #Neutrophils 2.5 thou/uL (1.40-6.50); %Eosinophils 2.4 % (0.0-10.0); %Lymphocytes 28.9 % (21.0-51.0); %Monocytes 4.8 % (0.0-10.0); %Neutrophils 62.9 % (42.0-75.0); Hemoglobin 10.8 g/dL (12.0-16.0); Mean Corpuscular HGB CONC 32.2 g/dL (32.0-36.0); Mean Corpuscular Volume 96.3 fL (78.0-98.0); Mean Platelet Volume 9.3 fL (7.4-10.4); Platelet Count 226 thou/uL (130-400); RBC Distribution Width 13.4 % (11.5-14.5); Red Blood Cell (RBC) Count 3.49 mill/uL (4.20-5.40); White Blood Cell (WBC) Count 3.9 thou/uL (4.8-10.8)
[2020-09-10 10:07] LABS: ALT (SGPT) 12 U/L (8-55); AST (SGOT) 20 U/L (5-34); Alkaline Phosphatase 98 U/L (40-110); Anion Gap 14 mmol/L (10-20); BUN (Urea Nitrogen) 12 mg/dL (9.8-20.1); Bilirubin, Total 0.4 mg/dL (0.2-1.2); Calc. Creatinine Clearance 0 mL/min (70-130); Calcium 9.3 mg/dL (7.8-10.44); Carbon Dioxide 25 mmol/L (23-31); Chloride 105 mmol/L (98-107); Globulin 3.5 g/dL (2.4-3.5); Glucose 89 mg/dL (83-110); Protein, Total 7.5 g/dL (6.0-8.3); Sodium 140 mmol/L (136-145)
[2020-09-10] MEDS ORDERED: Ondansetron PF 4 MG/2 ML Vial ONE (11:21)
[2020-09-10] MEDS ORDERED: Ketorolac Tromethamine 30 MG/ML VIAL ONE (11:21)
--- NOTE | 2020-09-10 11:59 | CT ---
CT ABDOMEN NONCONTRAST CT PELVIS NONCONTRAST: (Urolithiasis protocol) DATE: 09/10/2020 HISTORY: 74-year-old female with urinary tract infection and low back pain TECHNIQUE: IV injection of iodinated contrast media: None Oral contrast media: None FINDINGS: Other than for urolithiasis, the lack of IV and oral contrast limits the evaluation. Lung bases: Essentially clear. Gallbladder: Surgically absent. Clips in fossa. Liver: No contour abnormalities. Spleen: No splenomegaly. Pancreas: No contour abnormalities. Adrenals: No mass. Kidneys: No nephrolithiasis or overt hydronephrosis. Ureters: No calculi. Bladder: No calculi. No high-grade mural thickening. Abdominal aorta: No aneurysm. Small bowel: No dilation. Colon: Large number of diverticula throughout sigmoid: And scattered diverticula in other segments. N o adjacent fat stranding. Appendix: Not identified. Free air: None Free fluid: None Lumbar spine: Vertebral body heights are maintained. Multilevel severe degenerative disc disease and facet DJD. Severe central spinal canal stenosis at L2-3, L3-4, L4-5, and L5-S1. Severe bilateral neural foraminal stenosis at L3-4, L4-5, and L5-S1. Grade 1 anterolisthesis of L5 on S1 due to the fa cet DJD. No spondylolysis. IMPRESSION: 1. No acute findings. 2. No urolithiasis or obstructive uropathy. 3. Severe lumbar spondylosis, with multilevel severe central spinal canal stenosis and severe bilater al neural foraminal stenosis.
[2020-09-10 13:39] LABS: Bilirubin Negative (Negative); Blood, Urine Negative (Negative); Clarity Clear (Clear); Glucose, Urine (Dipstick) Normal (Negative); Ketone, Urine 80 mg/dL (Negative); Leukocyte Negative Leu/uL (Negative); Nitrite Negative (Negative); Protein, Urine (Dipstick) 10 mg/dL (Neg-Trace); Specific Gravity, Urine 1.016 (1.002-1.036); Urobilinogen Normal mg/dL (Less than 2); pH, Urine 6.5 (5.0-9.0)
== END 2020-09-10 14:17 | disposition home or self-care (01) ==
LOC: ERS 09:11
DX: R10.9 Unspecified abdominal pain (principal); K21.9 Gastro-esophageal reflux disease without esophagitis; E11.9 Type 2 diabetes mellitus without complications; E78.5 Hyperlipidemia, unspecified; E03.9 Hypothyroidism, unspecified; E78.00 Pure hypercholesterolemia, unspecified; M10.9 Gout, unspecified; Z79.84 Long term (current) use of oral hypoglycemic drugs; Z79.899 Other long term (current) drug therapy
CPT/HCPCS: 36415; 74176; 80053; 81003; 85025; 96374; 96375; J1885; J2405

== ENCOUNTER 2020-12-05 10:48 | Outpatient (CLI) | payer MEDICARE, MEDICAID | END 2020-12-05 10:49 | disposition home or self-care (01) | LOC: BICMAMMO 10:48 | PROVIDERS: ATTEND Nurse Practitioner Family | DX: Z12.31 Encounter for screening mammogram for malignant neoplasm of breast (principal); Z80.3 Family history of malignant neoplasm of breast; Z91.89 Other specified personal risk factors, not elsewhere classified | CPT/HCPCS: 77063; 77067 ==

== ENCOUNTER 2021-01-30 09:12 | Outpatient (CLI) | payer MEDICARE, MEDICAID | END 2021-01-30 09:13 | disposition home or self-care (01) | LOC: RAD-FRANK 09:12 | PROVIDERS: ATTEND Nurse Practitioner Family | DX: M54.5 Low back pain (principal); M47.816 Spondylosis without myelopathy or radiculopathy, lumbar region | CPT/HCPCS: 72100 ==

== ENCOUNTER 2022-04-17 09:45 | Outpatient (CLI) | payer MEDICARE, MEDICAID | END 2022-04-17 09:46 | disposition home or self-care (01) | LOC: RAD-FRANK 09:45 | PROVIDERS: ATTEND Nurse Practitioner Family | DX: M25.551 Pain in right hip (principal) ==

== ENCOUNTER 2022-05-15 12:23 | Outpatient (CLI) | payer MEDICARE, MEDICAID | END 2022-05-15 12:24 | disposition home or self-care (01) | LOC: SCSRAD 12:23 | PROVIDERS: ATTEND Anesthesiology Pain Medicine | DX: M16.11 Unilateral primary osteoarthritis, right hip (principal) ==

== ENCOUNTER 2022-06-15 15:11 | Outpatient (CLI) | payer MEDICARE, MEDICAID | END 2022-06-15 15:12 | disposition home or self-care (01) | LOC: SCSMRI 15:11 | PROVIDERS: ATTEND Nurse Practitioner Family | DX: M47.26 Other spondylosis with radiculopathy, lumbar region (principal); M47.814 Spondylosis without myelopathy or radiculopathy, thoracic region; M47.815 Spondylosis without myelopathy or radiculopathy, thoracolumbar region; M47.817 Spondylosis without myelopathy or radiculopathy, lumbosacral region | CPT/HCPCS: 72148 ==

== ENCOUNTER 2022-12-07 09:19 | Outpatient (CLI) | payer MEDICARE, MEDICAID ==
[2022-12-07 10:50] LABS: Hemoglobin 11.2 g/dL (12.0-15.5); Mean Corpuscular HGB CONC 35.3 g/dL (32.0-36.0); Mean Corpuscular Hemoglobin 36.1 pg (27.0-33.0); Mean Corpuscular Volume 102.3 fl (81.6-98.3); Mean Platelet Volume 11.7 fl (7.4-10.4); Platelet Count 174 10x3/uL (150-450); RBC Distribution Width 12.9 % (11.5-14.5); White Blood Cell (WBC) Count 3.3 10x3/uL (3.5-10.5)
[2022-12-07 10:56] LABS: Anion Gap 16 mmol/L (10-20); BUN (Urea Nitrogen) 22 mg/dL (9.8-20.1); Calc. Creatinine Clearance 0 mL/min (70-130); Calcium 9.5 mg/dL (7.8-10.44); Carbon Dioxide 21 mmol/L (23-31); Chloride 107 mmol/L (98-107); Estimated GFR 76; Glucose 120 mg/dL (83-110); Potassium 3.9 mmol/L (3.5-5.1); Sodium 140 mmol/L (136-145)
[2022-12-07 10:58] LABS: PTT 24.2 sec (22.0-33.0); Prothrombin Time 10.4 sec (9.5-12.1)
== END 2022-12-07 09:20 | disposition home or self-care (01) ==
LOC: LABBT 09:19
PROVIDERS: ATTEND Surgery
DX: Z01.818 Encounter for other preprocedural examination (principal); M51.26 Other intervertebral disc displacement, lumbar region; M48.062 Spinal stenosis, lumbar region with neurogenic claudication
CPT/HCPCS: 80048; 85027; 85610; 85730; 93005; 93010

== ENCOUNTER 2022-12-10 05:52 | Inpatient (IN) | payer OTHER, MEDICAID ==
[2022-12-09 09:13] VITALS: BMI 31.8
[2022-12-10] MEDS ORDERED: Sodium Chloride 0.9% 100 ML ONE ×2 (06:18→15:28)
[2022-12-10] MEDS ORDERED: CEFAZOLIN 2 GM VIAL ONE ×2 (06:18→15:27)
[2022-12-10] MEDS ORDERED: Vancomycin 1 GM VIAL ONE (06:41)
[2022-12-10] MEDS ORDERED: Thrombin 5000 UNITS/5 ML VIAL ONE ×3 (06:41→10:27)
[2022-12-10] MEDS ORDERED: Fentanyl 250 MCG/5 ML VIAL ONE (07:04)
[2022-12-10] MEDS ORDERED: MINERAL OIL/WHITE PETROLATUM 3.5 GM TUBE ONE (07:19)
[2022-12-10] MEDS ORDERED: Dexamethasone 20 MG/5 ML VIAL ONE (07:37)
[2022-12-10] MEDS ORDERED: Ondansetron PF 4 MG/2 ML Vial ONE (07:37)
[2022-12-10] MEDS ORDERED: Vecuronium 10 MG VIAL ONE (07:37)
[2022-12-10] MEDS ORDERED: PROPOFOL 200 MG/20 ML VIAL ONE (07:37)
[2022-12-10] MEDS ORDERED: GLYCOPYRROLATE/PF 0.2 MG/ML VIAL ONE (07:37)
[2022-12-10] MEDS ORDERED: ePHEDrine Sulfate 50 MG/10 ML VIAL ONE (07:37)
[2022-12-10] MEDS ORDERED: NEOSTIGMINE 3 MG/3 ML SYR 3 MG/3 ML SYRINGE ONE (07:37)
[2022-12-10] MEDS ORDERED: Lidocaine 1% PF 5 ML VIAL ONE (07:37)
[2022-12-10] MEDS ORDERED: Rocuronium Bromide 10 MG/ML (10ML VIAL) ONE (07:37)
[2022-12-10] MEDS ORDERED: Phenylephrine 10 MG/ML VIAL ONE (07:37)
[2022-12-10] MEDS ORDERED: Metoclopramide HCl 10 MG/2 ML VIAL ONE (07:37)
[2022-12-10] MEDS ORDERED: Acetaminophen 325 MG TAB PO PRN (11:49)
[2022-12-10] MEDS ORDERED: diphenhydrAMINE 25 MG CAP PO PRN (11:49)
[2022-12-10] MEDS ORDERED: traMADol HCl 50 MG TAB PO PRN (11:49)
[2022-12-10] MEDS ORDERED: Ondansetron PF 4 MG/2 ML Vial IVP PRN (11:49)
[2022-12-10] MEDS ORDERED: hydrALAZINE 20 MG/ML VIAL SLOW IVP PRN (11:52)
[2022-12-10] MEDS ORDERED: Diclofenac 1% 100 GM GEL TP PRN (11:53)
[2022-12-10] MEDS ORDERED: Morphine Sulfate 2 MG/ML SYRINGE SLOW IVP PRN (11:57)
[2022-12-10] MEDS ORDERED: HYDROmorphone 2 MG/ML VIAL SLOW IVP PRN (11:57)
[2022-12-10] MEDS ORDERED: PACU-Morphine 4MG/ML VIAL SLOW IVP PRN (11:57)
[2022-12-10] MEDS ORDERED: Promethazine HCl 25 MG/ML VIAL IM PRN (11:57)
[2022-12-10] MEDS ORDERED: Ondansetron HCl/PF 4 MG/2 ML Vial IVP PRN (11:57)
[2022-12-10] MEDS ORDERED: HYDROmorphone 0.5 MG/0.5 ML SYRINGE ONE ×4 (12:04→14:47)
[2022-12-10] MEDS: CEFAZOLIN 2 GM in Sodium Chloride 0.9% 100 ML IVPB SCH (15:34)
[2022-12-10] MEDS: Sodium Chloride 0.9% 1,000 ML IV SCH (15:45)
[2022-12-10] MEDS ORDERED: tiZANidine HCl 4 MG TAB ONE (16:09)
[2022-12-10] MEDS: Morphine 2 MG/ML VIAL SLOW IVP PRN (18:32)
[2022-12-10] MEDS ORDERED: metFORMIN 500 MG TAB PO SCH (21:00)
[2022-12-10] MEDS: Lisinopril 20 MG TAB PO SCH (21:15)
[2022-12-10] MEDS: Atorvastatin Calcium 20 MG TAB PO SCH (21:15)
[2022-12-10] MEDS: Calcium Carbonate 600 MG + Vit D TAB PO SCH (21:15)
[2022-12-11] MEDS: tiZANidine HCl 4 MG TAB PO PRN ×2 (00:29→16:23)
[2022-12-11] MEDS: HYDROcodone/Acetaminophen 7.5/325 mg Tablet PO PRN ×3 (00:29→20:49)
[2022-12-11] MEDS: CEFAZOLIN 2 GM in Sodium Chloride 0.9% 100 ML IVPB SCH (00:32)
[2022-12-11 05:30] LABS: #Monocytes 0.4 thou/uL (0.11-0.59); #Neutrophils 4.3 thou/uL (1.40-6.50); %Basophils 0.2 % (0.0-1.0); %Eosinophils 0.2 % (0.0-10.0); %Lymphocytes 17.6 % (21.0-51.0); %Monocytes 7.7 % (0.0-10.0); %Neutrophils 74.3 % (42.0-75.0); Anion Gap 13 mmol/L (10-20); BUN (Urea Nitrogen) 13 mg/dL (9.8-20.1); Calc. Creatinine Clearance 76 mL/min (70-130); Calcium 8.6 mg/dL (7.8-10.44); Carbon Dioxide 23 mmol/L (23-31); Chloride 107 mmol/L (98-107); Estimated GFR 83; Glucose 147 mg/dL (83-110); Hemoglobin 7.9 g/dL (12.0-16.0); Mean Corpuscular HGB CONC 34.5 g/dL (32.0-36.0); Mean Corpuscular Hemoglobin 34.8 pg (27.0-31.0); Mean Platelet Volume 9.2 fL (7.4-10.4); Platelet Count 120 10x3/uL (130-400); Potassium 3.9 mmol/L (3.5-5.1); Red Blood Cell (RBC) Count 2.26 mill/uL (4.20-5.40); Sodium 139 mmol/L (136-145); White Blood Cell (WBC) Count 5.7 10x3/uL (4.8-10.8)
[2022-12-11] MEDS: Sodium Chloride 0.9% 1,000 ML IV SCH ×3 (05:45→21:14)
[2022-12-11] MEDS ORDERED: Levothyroxine 175 MCG TAB PO SCH ×2 (07:45→09:00)
[2022-12-11] MEDS: Ketorolac Tromethamine 30 MG/ML VIAL IVP PRN (07:50)
[2022-12-11] MEDS ORDERED: BIOTIN 5 MG PO SCH (09:00)
[2022-12-11] MEDS ORDERED: GLUCOSAMINE HCL 500 MG PO SCH (09:00)
[2022-12-11] MEDS: Loratadine 10 MG TAB PO SCH (10:37)
[2022-12-11] MEDS: Ferrous Sulfate 325 MG TAB PO SCH (10:37)
[2022-12-11] MEDS: Magnesium Oxide 250 MG TAB PO SCH (10:37)
[2022-12-11] MEDS: Multivitamin W/ Minerals 1 TAB PO SCH (10:37)
[2022-12-11] MEDS: Cholecalciferol 1,000 UNITS (25 MCG) TAB PO SCH (10:37)
[2022-12-11] MEDS: metFORMIN 500 MG TAB PO SCH ×2 (10:38→16:23)
[2022-12-11] MEDS: Cyanocobalamin (Vitamin B-12) 1,000 MCG TAB PO SCH (10:38)
[2022-12-11] MEDS: Polyethylene Glycol 3350 17 GM Packet PO SCH (10:38)
[2022-12-11] MEDS: Calcium Carbonate 600 MG + Vit D TAB PO SCH ×2 (10:38→20:16)
[2022-12-11] MEDS: Diazepam 5 MG TAB PO PRN (11:24)
[2022-12-11] MEDS: Amlodipine 5 MG TAB PO SCH (18:36)
[2022-12-11] MEDS ORDERED: Sodium Chloride 0.9% 500 ML IV SCH ×2 (20:00→21:15)
[2022-12-11] MEDS: Atorvastatin Calcium 20 MG TAB PO SCH (20:16)
[2022-12-11] MEDS: Lisinopril 20 MG TAB PO SCH (20:17)
[2022-12-11 20:47] LABS: #Lymphocytes 1.3 thou/uL (1.20-3.40); #Monocytes 0.5 thou/uL (0.11-0.59); #Neutrophils 4.9 thou/uL (1.40-6.50); %Basophils 0.1 % (0.0-1.0); %Eosinophils 0.5 % (0.0-10.0); %Lymphocytes 19.6 % (21.0-51.0); %Monocytes 7.8 % (0.0-10.0); Hemoglobin 10.3 g/dL (12.0-16.0); Mean Corpuscular HGB CONC 34.2 g/dL (32.0-36.0); Mean Corpuscular Hemoglobin 32.6 pg (27.0-31.0); Mean Corpuscular Volume 95.2 fl (78.0-98.0); Mean Platelet Volume 9.6 fL (7.4-10.4); Platelet Count 106 10x3/uL (130-400); RBC Distribution Width 15.8 % (11.5-14.5); Red Blood Cell (RBC) Count 3.17 mill/uL (4.20-5.40); White Blood Cell (WBC) Count 6.8 10x3/uL (4.8-10.8)
[2022-12-12] MEDS: HYDROcodone/Acetaminophen 7.5/325 mg Tablet PO PRN ×2 (02:08→05:53)
[2022-12-12] MEDS: Sodium Chloride 0.9% 1,000 ML IV SCH ×2 (05:08→18:35)
[2022-12-12] MEDS: Levothyroxine 175 MCG TAB PO SCH (05:52)
[2022-12-12] MEDS: Amlodipine 5 MG TAB PO SCH (08:45)
[2022-12-12] MEDS: Ketorolac Tromethamine 30 MG/ML VIAL IVP PRN (08:47)
[2022-12-12] MEDS: Cyanocobalamin (Vitamin B-12) 1,000 MCG TAB PO SCH (08:50)
[2022-12-12] MEDS: Loratadine 10 MG TAB PO SCH (08:50)
[2022-12-12] MEDS: Multivitamin W/ Minerals 1 TAB PO SCH (08:50)
[2022-12-12] MEDS: Polyethylene Glycol 3350 17 GM Packet PO SCH (08:50)
[2022-12-12] MEDS: Cholecalciferol 1,000 UNITS (25 MCG) TAB PO SCH (08:50)
[2022-12-12] MEDS: Ferrous Sulfate 325 MG TAB PO SCH (08:50)
[2022-12-12] MEDS: Magnesium Oxide 250 MG TAB PO SCH (08:50)
[2022-12-12] MEDS: Calcium Carbonate 600 MG + Vit D TAB PO SCH ×2 (08:50→20:53)
[2022-12-12] MEDS: metFORMIN 500 MG TAB PO SCH ×2 (08:50→18:41)
[2022-12-12] MEDS ORDERED: Cosyntropin 250 MCG VIAL SLOW IVP SCH (10:15)
[2022-12-12 11:54] LABS: Free T4 (Free Thyroxine) 1.45 ng/dL (0.70-1.48); Thyroid Stimulating Hormone 0.6556 uIU/mL (0.35-4.94)
[2022-12-12] MEDS: Ketorolac Tromethamine 30 MG/ML VIAL IVP SCH ×4 (12:00→23:39)
[2022-12-12] MEDS: Diazepam 5 MG TAB PO PRN (14:03)
[2022-12-12] MEDS: Acetaminophen/Codeine 30-300mg Tablet PO PRN (18:39)
[2022-12-12] MEDS: Atorvastatin Calcium 20 MG TAB PO SCH (20:53)
[2022-12-12] MEDS: Morphine 2 MG/ML VIAL SLOW IVP PRN (20:57)
[2022-12-12] MEDS: Lisinopril 20 MG TAB PO SCH (21:21)
[2022-12-13] MEDS: HYDROcodone/Acetaminophen 7.5/325 mg Tablet PO PRN ×3 (02:05→21:56)
[2022-12-13] MEDS: Levothyroxine 175 MCG TAB PO SCH (05:46)
[2022-12-13] MEDS: Ketorolac Tromethamine 30 MG/ML VIAL IVP SCH ×3 (05:47→17:30)
[2022-12-13 07:58] LABS: #Eosinphils 0.1 thou/uL (0.0-0.7); #Lymphocytes 0.7 thou/uL (1.20-3.40); #Monocytes 0.4 thou/uL (0.11-0.59); #Neutrophils 3.8 thou/uL (1.40-6.50); %Basophils 0.2 % (0.0-1.0); %Eosinophils 2.5 % (0.0-10.0); %Lymphocytes 14.1 % (21.0-51.0); %Neutrophils 75.3 % (42.0-75.0); Mean Corpuscular HGB CONC 33.7 g/dL (32.0-36.0); Mean Corpuscular Hemoglobin 32.9 pg (27.0-31.0); Mean Corpuscular Volume 97.5 fl (78.0-98.0); Platelet Count 115 10x3/uL (130-400); RBC Distribution Width 15.5 % (11.5-14.5); Red Blood Cell (RBC) Count 3.03 mill/uL (4.20-5.40)
[2022-12-13] MEDS: Multivitamin W/ Minerals 1 TAB PO SCH (08:39)
[2022-12-13] MEDS: Magnesium Oxide 250 MG TAB PO SCH (08:39)
[2022-12-13] MEDS: metFORMIN 500 MG TAB PO SCH ×2 (08:39→17:31)
[2022-12-13] MEDS: Calcium Carbonate 600 MG + Vit D TAB PO SCH ×2 (08:39→21:57)
[2022-12-13] MEDS: Polyethylene Glycol 3350 17 GM Packet PO SCH (08:40)
[2022-12-13] MEDS: Ferrous Sulfate 325 MG TAB PO SCH (08:40)
[2022-12-13] MEDS: Cyanocobalamin (Vitamin B-12) 1,000 MCG TAB PO SCH (08:40)
[2022-12-13] MEDS: Loratadine 10 MG TAB PO SCH (08:40)
[2022-12-13] MEDS: Cholecalciferol 1,000 UNITS (25 MCG) TAB PO SCH (08:40)
[2022-12-13] MEDS: Amlodipine 5 MG TAB PO SCH (08:45)
[2022-12-13] MEDS: Sodium Chloride 0.9% 1,000 ML IV SCH (13:59)
[2022-12-13] MEDS: Morphine 2 MG/ML VIAL SLOW IVP PRN (20:42)
[2022-12-13] MEDS: Lisinopril 20 MG TAB PO SCH (21:57)
[2022-12-13] MEDS: Atorvastatin Calcium 20 MG TAB PO SCH (21:57)
[2022-12-14] MEDS: Ketorolac Tromethamine 30 MG/ML VIAL IVP SCH ×3 (00:07→14:36)
[2022-12-14] MEDS: Diazepam 5 MG TAB PO PRN ×2 (02:18→19:08)
[2022-12-14] MEDS: Sodium Chloride 0.9% 1,000 ML IV SCH ×2 (03:45→14:36)
[2022-12-14] MEDS: Morphine 2 MG/ML VIAL SLOW IVP PRN (03:46)
[2022-12-14] MEDS: Levothyroxine 175 MCG TAB PO SCH (05:19)
[2022-12-14] MEDS: metFORMIN 500 MG TAB PO SCH ×2 (09:00→17:50)
[2022-12-14] MEDS: Cyanocobalamin (Vitamin B-12) 1,000 MCG TAB PO SCH (09:00)
[2022-12-14] MEDS: Ferrous Sulfate 325 MG TAB PO SCH (09:00)
[2022-12-14] MEDS: Calcium Carbonate 600 MG + Vit D TAB PO SCH ×2 (09:00→20:40)
[2022-12-14] MEDS: Magnesium Oxide 250 MG TAB PO SCH (09:00)
[2022-12-14] MEDS: Amlodipine 5 MG TAB PO SCH (09:00)
[2022-12-14] MEDS: Cholecalciferol 1,000 UNITS (25 MCG) TAB PO SCH (09:00)
[2022-12-14] MEDS: Loratadine 10 MG TAB PO SCH (09:00)
[2022-12-14] MEDS: Multivitamin W/ Minerals 1 TAB PO SCH (09:00)
[2022-12-14] MEDS: Polyethylene Glycol 3350 17 GM Packet PO SCH (09:01)
[2022-12-14] MEDS: HYDROcodone/Acetaminophen 7.5/325 mg Tablet PO PRN ×3 (09:07→22:29)
[2022-12-14] MEDS ORDERED: Ketorolac Tromethamine 30 MG/ML VIAL IVP SCH (14:30)
[2022-12-14] MEDS: Acetaminophen/Codeine 30-300mg Tablet PO PRN (20:41)
[2022-12-14] MEDS: Atorvastatin Calcium 20 MG TAB PO SCH (20:41)
[2022-12-14] MEDS: Lisinopril 20 MG TAB PO SCH (20:48)
[2022-12-15] MEDS: Sodium Chloride 0.9% 1,000 ML IV SCH ×2 (01:40→13:50)
[2022-12-15] MEDS: Diazepam 5 MG TAB PO PRN ×3 (02:52→20:32)
[2022-12-15] MEDS: Acetaminophen/Codeine 30-300mg Tablet PO PRN ×4 (02:52→18:50)
[2022-12-15] MEDS: Levothyroxine 175 MCG TAB PO SCH (06:29)
[2022-12-15] MEDS: HYDROcodone/Acetaminophen 7.5/325 mg Tablet PO PRN ×2 (06:30→15:14)
[2022-12-15] MEDS: Cholecalciferol 1,000 UNITS (25 MCG) TAB PO SCH (08:58)
[2022-12-15] MEDS: Calcium Carbonate 600 MG + Vit D TAB PO SCH ×2 (08:58→20:31)
[2022-12-15] MEDS: metFORMIN 500 MG TAB PO SCH ×2 (08:58→18:50)
[2022-12-15] MEDS: Magnesium Oxide 250 MG TAB PO SCH (08:58)
[2022-12-15] MEDS: Multivitamin W/ Minerals 1 TAB PO SCH (08:58)
[2022-12-15] MEDS: Cyanocobalamin (Vitamin B-12) 1,000 MCG TAB PO SCH (08:58)
[2022-12-15] MEDS: Loratadine 10 MG TAB PO SCH (08:58)
[2022-12-15] MEDS: Ferrous Sulfate 325 MG TAB PO SCH (08:58)
[2022-12-15] MEDS: Amlodipine 5 MG TAB PO SCH (09:03)
[2022-12-15] MEDS: Polyethylene Glycol 3350 17 GM Packet PO SCH (09:03)
[2022-12-15] MEDS: Atorvastatin Calcium 20 MG TAB PO SCH (20:31)
[2022-12-15] MEDS: Lisinopril 20 MG TAB PO SCH (21:21)
[2022-12-16] MEDS: Sodium Chloride 0.9% 1,000 ML IV SCH ×2 (02:33→12:45)
[2022-12-16] MEDS: Levothyroxine 175 MCG TAB PO SCH (06:12)
[2022-12-16] MEDS ORDERED: Dexamethasone 10 MG/ML VIAL SLOW IVP SCH (08:00)
[2022-12-16] MEDS: Gabapentin 300 MG CAP PO SCH ×3 (08:23→19:58)
[2022-12-16] MEDS: Amlodipine 5 MG TAB PO SCH (08:23)
[2022-12-16] MEDS: Loratadine 10 MG TAB PO SCH (08:23)
[2022-12-16] MEDS: Magnesium Oxide 250 MG TAB PO SCH (08:23)
[2022-12-16] MEDS: Cyanocobalamin (Vitamin B-12) 1,000 MCG TAB PO SCH (08:24)
[2022-12-16] MEDS: Ferrous Sulfate 325 MG TAB PO SCH (08:24)
[2022-12-16] MEDS: HYDROcodone/Acetaminophen 7.5/325 mg Tablet PO PRN ×2 (08:24→14:37)
[2022-12-16] MEDS: metFORMIN 500 MG TAB PO SCH ×2 (08:24→17:13)
[2022-12-16] MEDS: Multivitamin W/ Minerals 1 TAB PO SCH (08:25)
[2022-12-16] MEDS: Calcium Carbonate 600 MG + Vit D TAB PO SCH ×2 (08:25→19:59)
[2022-12-16] MEDS: Cholecalciferol 1,000 UNITS (25 MCG) TAB PO SCH (08:25)
[2022-12-16] MEDS: Polyethylene Glycol 3350 17 GM Packet PO SCH (08:25)
[2022-12-16] MEDS: Dexamethasone 4 MG TAB PO SCH ×2 (14:39→19:59)
[2022-12-16] MEDS: Lisinopril 20 MG TAB PO SCH (19:59)
[2022-12-16] MEDS: Atorvastatin Calcium 20 MG TAB PO SCH (19:59)
[2022-12-17] MEDS: Sodium Chloride 0.9% 1,000 ML IV SCH ×2 (03:01→12:56)
[2022-12-17] MEDS: Dexamethasone 4 MG TAB PO SCH ×2 (03:05→11:20)
[2022-12-17 05:52] LABS: Anion Gap 14 mmol/L (10-20); BUN (Urea Nitrogen) 16 mg/dL (9.8-20.1); Calc. Creatinine Clearance 69 mL/min (70-130); Calcium 9.3 mg/dL (7.8-10.44); Carbon Dioxide 25 mmol/L (23-31); Chloride 100 mmol/L (98-107); Estimated GFR 75; Glucose 286 mg/dL (83-110); Potassium 4.3 mmol/L (3.5-5.1); Sodium 135 mmol/L (136-145)
[2022-12-17] MEDS: Levothyroxine 175 MCG TAB PO SCH (05:59)
[2022-12-17] MEDS ORDERED: tiZANidine HCl 4 MG TAB PO PRN (08:00)
[2022-12-17] MEDS ORDERED: HYDROcodone/Acetaminophen 7.5/325 mg Tablet PO PRN (08:00)
[2022-12-17 08:51] VITALS: BP 125/66; TEMP 98.2
[2022-12-17] MEDS: metFORMIN 500 MG TAB PO SCH (09:42)
[2022-12-17] MEDS: Ferrous Sulfate 325 MG TAB PO SCH (09:42)
[2022-12-17] MEDS: Magnesium Oxide 250 MG TAB PO SCH (09:42)
[2022-12-17] MEDS: Calcium Carbonate 600 MG + Vit D TAB PO SCH (09:43)
[2022-12-17] MEDS: Cholecalciferol 1,000 UNITS (25 MCG) TAB PO SCH (09:43)
[2022-12-17] MEDS: Multivitamin W/ Minerals 1 TAB PO SCH (09:43)
[2022-12-17] MEDS: Gabapentin 300 MG CAP PO SCH (09:44)
[2022-12-17] MEDS: Loratadine 10 MG TAB PO SCH (09:44)
[2022-12-17] MEDS: Cyanocobalamin (Vitamin B-12) 1,000 MCG TAB PO SCH (09:44)
[2022-12-17] MEDS: Amlodipine 5 MG TAB PO SCH (09:46)
[2022-12-17] MEDS: Polyethylene Glycol 3350 17 GM Packet PO SCH (09:46)
[2022-12-17] MEDS ORDERED: Dexamethasone 1 MG TAB PO SCH (14:00)
[2022-12-18] MEDS ORDERED: Dexamethasone 1 MG TAB PO SCH (14:00)
[2022-12-19] MEDS ORDERED: Dexamethasone 1 MG TAB PO SCH (14:00)
== END 2022-12-17 14:22 | DRG 520 ==
LOC: SDC 05:52 → MSONC 17:43 → OBSVTOIN 12-11 15:49
PROVIDERS: ADMIT Surgery; ATTEND Surgery
PROC: 01NB0ZZ Release Lumbar Nerve, Open Approach (ICD-10-PCS; principal; 2022-12-10)
PROC: 0SB20ZZ Excision of Lumbar Vertebral Disc, Open Approach (ICD-10-PCS; 2022-12-10)
DX: M48.062 Spinal stenosis, lumbar region with neurogenic claudication (principal); M51.26 Other intervertebral disc displacement, lumbar region; M54.16 Radiculopathy, lumbar region; E11.9 Type 2 diabetes mellitus without complications; E03.9 Hypothyroidism, unspecified; M06.9 Rheumatoid arthritis, unspecified; Z88.2 Allergy status to sulfonamides; Z88.1 Allergy status to other antibiotic agents; Z79.899 Other long term (current) drug therapy; Z79.82 Long term (current) use of aspirin
CPT/HCPCS: 36415; 36416; 36430; 80048; 80400; 84439; 84443; 85025; 86850; 86900; 86901; 93970; 96374; C1889; G0378; J0834; J1100; J1170; J1885; J2272; J2370; J2405; J2704; J2765; J3010; J3370; J3490; J7030; J7050; J8540; P9016

== ENCOUNTER 2023-02-16 09:14 | Outpatient (CLI) | payer OTHER, MEDICAID | END 2023-02-16 09:15 | disposition home or self-care (01) | LOC: BICRAD 09:14 | PROVIDERS: ATTEND Nurse Practitioner Family | DX: M25.562 Pain in left knee (principal); M17.11 Unilateral primary osteoarthritis, right knee ==

== ENCOUNTER 2023-04-01 13:07 | Outpatient (CLI) | payer OTHER, MEDICAID | END 2023-04-01 13:08 | disposition home or self-care (01) | LOC: BICMAMMO 13:07 | PROVIDERS: ATTEND Nurse Practitioner Family | DX: Z12.31 Encounter for screening mammogram for malignant neoplasm of breast (principal); Z80.3 Family history of malignant neoplasm of breast; Z91.89 Other specified personal risk factors, not elsewhere classified | CPT/HCPCS: 77063; 77067 ==

== ENCOUNTER 2023-10-07 06:29 | Day surgery (SDC) | payer MEDICARE, MEDICAID ==
[2023-10-06 08:41] VITALS: BMI 31.3
[~2023-10-07 06:29] MED LIST: EPINEPHrine 0.3 MG in Ophthalmic Irrigation Solution 500 ML IRR SCH
[2023-10-07] MEDS ORDERED: PHENYLephrine 2.5% Ophth Soln 15 ml Bottle ONE (06:59)
[2023-10-07] MEDS ORDERED: Cyclopentolate 1% Opth Drop 2 ML BOT ONE (06:59)
[2023-10-07] MEDS ORDERED: fentaNYL 50 mcg/mL 1 mL Vial ONE (07:27)
[2023-10-07] MEDS ORDERED: Midazolam HCl 2 mg/2 ml Vial ONE (07:28)
[2023-10-07] MEDS ORDERED: Dexamethasone 20 MG/5 ML VIAL ONE (07:51)
[2023-10-07] MEDS ORDERED: Maxitrol 0.1% Opth Oint 3.5 GM TUBE ONE (07:51)
[2023-10-07] MEDS ORDERED: CEFAZOLIN 1 GM VIAL ONE (07:51)
[2023-10-07] MEDS ORDERED: Bupivacaine 0.75% 10 ML VIAL ONE (07:51)
[2023-10-07] MEDS ORDERED: Lidocaine 4% PF 5 ML AMP ONE (07:51)
[2023-10-07] MEDS ORDERED: ePHEDrine Sulfate 50 MG/10 ML VIAL ONE (07:59)
[2023-10-07] MEDS ORDERED: Dexamethasone 4 mg/ml Vial ONE (08:06)
== END 2023-10-07 08:50 | disposition home or self-care (01) ==
LOC: SDC 06:29
PROVIDERS: ATTEND Ophthalmology Retina Specialist
PROC: 08T53ZZ Resection of Left Vitreous, Percutaneous Approach (ICD-10-PCS; principal; 2023-10-07)
PROC: 08NF3ZZ Release Left Retina, Percutaneous Approach (ICD-10-PCS; 2023-10-07)
DX: H43.312 Vitreous membranes and strands, left eye (principal); Z88.2 Allergy status to sulfonamides
CPT/HCPCS: 67041; J3010; J0171; J0690; J1100; J2250; J3490

== ENCOUNTER 2024-04-03 12:46 | Outpatient (CLI) | payer MEDICARE, MEDICAID | END 2024-04-03 12:47 | disposition home or self-care (01) | LOC: BICMAMMO 12:46 | PROVIDERS: ATTEND Nurse Practitioner Family | DX: Z12.31 Encounter for screening mammogram for malignant neoplasm of breast (principal); Z80.3 Family history of malignant neoplasm of breast; Z91.89 Other specified personal risk factors, not elsewhere classified | CPT/HCPCS: 77063; 77067 ==

== ENCOUNTER 2024-07-10 23:45 | Emergency (ER) | payer OTHER, MEDICAID | END 2024-07-11 00:45 | disposition home or self-care (01) | LOC: ERS 23:45 | DX: I10 Essential (primary) hypertension (principal); E11.9 Type 2 diabetes mellitus without complications | CPT/HCPCS: 93005; 99283 ==

== ENCOUNTER 2025-04-04 10:01 | Outpatient (CLI) | payer MEDICARE, MEDICAID | END 2025-04-04 10:02 | disposition home or self-care (01) | LOC: BICMAMMO 10:01 | PROVIDERS: ATTEND Nurse Practitioner Family | DX: Z12.31 Encounter for screening mammogram for malignant neoplasm of breast (principal); Z80.3 Family history of malignant neoplasm of breast; Z91.89 Other specified personal risk factors, not elsewhere classified | CPT/HCPCS: 77063; 77067 ==